=== PATIENT | female | born 1990 | race Caucasian/White ===

== ENCOUNTER 2019-09-11 17:16 | Emergency (ER) | payer OTHER ==
[2019-09-11 17:56] VITALS: RESP 18
[2019-09-11] MEDS ORDERED: SODIUM CHLORIDE 0.9% 1,000 ML IV ONE (18:30)
--- NOTE | 2019-09-11 18:39 | ED ---
General Adult HPI - General Chief complaint: Urogenital Stated complaint: Vaginal bleeding-15wks pg Time Seen by Provider: 09/11/19 17:59 Source: patient Mode of arrival: ambulatory Limitations: no limitations - History of Present Illness Initial comments: 29-year-old female patient presents to the emergency department today for evaluation of vaginal bleeding and . Patient states she is 15 weeks , A1 with one miscarriage, one living child, and one still . Patient states she had 3 hours of spotting yesterday. Patient denies any passage of clots. She did not have to are patent. States she only saw blood when she wiped. Patient states she has been feeling the baby move for the last 3-4 days and has not felt the baby move at all today. She is having some left lower quadrant cramping and pain. She denies any back pain. Denies any hematuria, dysuria, urinary frequency, urinary urgency. She is seeing Dr. Tomeka Mckeon for her HIM SPECIALIST. Patient denies any recent rash, fever, chills, shortness breath, chest pain, nausea, vomiting, diarrhea, constipation, numbness, tingling, dizziness, weakness, headache, visual changes, or any other complaints. - Related Data Previous Rx's Medication Instructions Recorded Cephalexin [Keflex] 500 mg PO BID #14 cap 09/11/19 Allergies Allergy/AdvReac Type Severity Reaction Status Date / Time amoxicillin Allergy Rash/Hives Verified 09/11/19 17:56 codeine Allergy Itching Verified 09/11/19 17:56 Review of Systems ROS Statement: Those systems with pertinent positive or pertinent negative responses have been documented in the HPI. ROS Other: All systems not noted in ROS Statement are negative. Past Medical History Additional Past Medical History / Comment(s): ovarian cyst History of Any Multi-Drug Resistant Organisms: None Reported Past Surgical History: Adenoidectomy, Cholecystectomy, Tonsillectomy Past Psychological History: No Psychological Hx Reported Smoking Status: Current every day smoker Past Alcohol Use History: None Reported Past Drug Use History: None Reported, Marijuana General Exam Limitations: no limitations General appearance: alert, in no apparent distress, other (This is a well- developed, well-nourished, nontoxic-appearing adult female patient in no acute distress. Vital signs upon presentation are temperature 98.3F, pulse 81, respirations 18, blood pressure 115/69, pulse ox 98% on room air.) Eye exam: Present: normal appearance, PERRL, EOMI. Absent: scleral icterus, conjunctival injection, periorbital swelling ENT exam: Present: normal exam, normal oropharynx, mucous membranes moist Respiratory exam: Present: normal lung sounds bilaterally. Absent: respiratory distress, wheezes, rales, rhonchi, stridor Cardiovascular Exam: Present: regular rate, normal rhythm, normal heart sounds. Absent: systolic murmur, diastolic murmur, rubs, gallop, clicks GI/Abdominal exam: Present: soft, tenderness (Suprapubic and left lower quadrant tenderness), normal bowel sounds. Absent: distended, guarding, rebound, rigid Neurological exam: Present: alert, oriented X3, CN II-XII intact Psychiatric exam: Present: normal affect, normal mood Skin exam: Present: warm, dry, intact, normal color. Absent: rash Course Vital Signs 09/11/19 09/11/19 17:53 20:27 Temperature 98.3 F 97.7 F Pulse Rate 81 71 Respiratory 18 18 Rate Blood Pressure 115/69 129/87 O2 Sat by Pulse 98 98 Oximetry Medical Decision Making - Medical Decision Making 29-year-old female patient presents to the emergency department today for evaluation of vaginal bleeding and . She had 3 hours of bleeding yesterday. She reports no bleeding today. She is having some left pelvic discomfort. Labs reviewed and are unremarkable. She is A+ on her blood type. Ultrasound was obtained and showed a viable intrauterine with a gestat ional age of 15 weeks 3 days, heart rate was 149. Patient did receive IV fluids. There was some bacteria in her urine. We'll treat with Keflex. She is instructed to follow-up with HIM SPECIALIST for recheck in 1-2 days. She is instructed to maintain pelvic rest until cleared by her HIM SPECIALIST. Return parameters were discussed in detail. She verbalizes understanding and agrees this plan. - Lab Data Result diagrams: 09/11/19 18:40 09/11/19 18:40 Lab Results 09/11/19 09/11/19 09/11/19 Range/Units 18:40 18:40 18:40 WBC 8.6 (3.8-10.6) k/uL RBC 3.96 (3.80-5.40) m/uL Hgb 13.2 (11.4-16.0) gm/dL Hct 38.5 (34.0-46.0) % MCV 97.2 (80.0-100.0) fL MCH 33.4 (25.0-35.0) pg MCHC 34.3 (31.0-37.0) g/dL RDW 13.0 (11.5-15.5) % Plt Count 251 (150-450) k/uL Neutrophils % 65 % Lymphocytes % 22 % Monocytes % 5 % Eosinophils % 5 % Basophils % 1 % Neutrophils # 5.6 (1.3-7.7) k/uL Lymphocytes # 1.9 (1.0-4.8) k/uL Monocytes # 0.5 (0-1.0) k/uL Eosinophils # 0.5 (0-0.7) k/uL Basophils # 0.1 (0-0.2) k/uL Sodium 137 (137-145) mmol/L Potassium 3.9 (3.5-5.1) mmol/L Chloride 107 (98-107) mmol/L Carbon Dioxide 24 (22-30) mmol/L Anion Gap 6 mmol/L BUN 9 (7-17) mg/dL Creatinine 0.65 (0.52-1.04) mg/dL Est GFR (CKD-EPI)AfAm >90 (>60 ml/min/1.73 sqM) Est GFR (CKD-EPI)NonAf >90 (>60 ml/min/1.73 sqM) Glucose 76 (74-99) mg/dL Calcium 8.9 (8.4-10.2) mg/dL Total Bilirubin 0.2 (0.2-1.3) mg/dL AST 29 (14-36) U/L ALT 38 (9-52) U/L Alkaline Phosphatase 77 (38-126) U/L Total Protein 6.4 (6.3-8.2) g/dL Albumin 3.5 (3.5-5.0) g/dL Urine Color Urine Appearance (Clear) Urine pH (5.0-8.0) Ur Specific [place] (1.001-1.035) Urine Protein (Negative) Urine Glucose (UA) (Negative) Urine Ketones (Negative) Urine Blood (Negative) Urine Nitrite (Negative) Urine Bilirubin (Negative) Urine Urobilinogen (<2.0) mg/dL Ur Leukocyte Esterase (Negative) Urine RBC (0-5) /hpf Urine WBC (0-5) /hpf Ur Squamous Epith Cells (0-4) /hpf Urine Bacteria (None) /hpf Urine Mucus (None) /hpf Blood Type A Positive Blood Type Recheck No Previous Record Bld Type Recheck Status [facility] ONLY 09/11/19 Range/Units 18:40 WBC (3.8-10.6) k/uL RBC (3.80-5.40) m/uL Hgb (11.4-16.0) gm/dL Hct (34.0-46.0) % MCV (80.0-100.0) fL MCH (25.0-35.0) pg MCHC (31.0-37.0) g/dL RDW (11.5-15.5) % Plt Count (150-450) k/uL Neutrophils % % Lymphocytes % % Monocytes % % Eosinophils % % Basophils % % Neutrophils # (1.3-7.7) k/uL Lymphocytes # (1.0-4.8) k/uL Monocytes # (0-1.0) k/uL Eosinophils # (0-0.7) k/uL Basophils # (0-0.2) k/uL Sodium (137-145) mmol/L Potassium (3.5-5.1) mmol/L Chloride (98-107) mmol/L Carbon Dioxide (22-30) mmol/L Anion Gap mmol/L BUN (7-17) mg/dL Creatinine (0.52-1.04) mg/dL Est GFR (CKD-EPI)AfAm (>60 ml/min/1.73 sqM) Est GFR (CKD-EPI)NonAf (>60 ml/min/1.73 sqM) Glucose (74-99) mg/dL Calcium (8.4-10.2) mg/dL Total Bilirubin (0.2-1.3) mg/dL AST (14-36) U/L ALT (9-52) U/L Alkaline Phosphatase (38-126) U/L Total Protein (6.3-8.2) g/dL Albumin (3.5-5.0) g/dL Urine Color Yellow Urine Appearance Cloudy H (Clear) Urine pH 6.5 (5.0-8.0) Ur Specific [place] 1.017 (1.001-1.035) Urine Protein Negative (Negative) Urine Glucose (UA) Negative (Negative) Urine Ketones Negative (Negative) Urine Blood Negative (Negative) Urine Nitrite Negative (Negative) Urine Bilirubin Negative (Negative) Urine Urobilinogen 2.0 (<2.0) mg/dL Ur Leukocyte Esterase Small H (Negative) Urine RBC 1 (0-5) /hpf Urine WBC 4 (0-5) /hpf Ur Squamous Epith Cells 5 H (0-4) /hpf Urine Bacteria Rare H (None) /hpf Urine Mucus Rare H (None) /hpf Blood Type Blood Type Recheck Bld Type Recheck Status - Radiology Data Radiology results: report reviewed Ultrasound of the fetus was obtained. Report was reviewed in its entirety. Impression by Dr. Beavers shows limited survey. Single viable intrauterine corresponding to an ultrasound age of 15 weeks 3 days with an estimated delivery date of 03/01/2020 Disposition Clinical Impression: Vaginal bleeding during , Abdominal pain affecting , Bacteriu nicolle during Disposition: HOME SELF-CARE Condition: Good Instructions (If sedation given, give patient instructions): Abdominal Pain in (ED) Additional Instructions: Increase fluids. Maintain pelvic rest until cleared by HIM SPECIALIST. Follow up with your HIM SPECIALIST for recheck as soon as possible. Return to the emergency department immediately for any new, worsening, or concerning symptoms. Prescriptions: Cephalexin [Keflex] 500 mg PO BID #14 cap Is patient prescribed a controlled substance at d/c from ED?: No Referrals: None,Stated [Primary Care Provider] - 1-2 days Time of Disposition: 20:17
[2019-09-11 19:08] LABS: Basophils # (A) 0.1 k/uL (0-0.2); Basophils % (A) 1 %; Eosinophils # (A) 0.5 k/uL (0-0.7); Eosinophils % (A) 5 %; HCT 38.5 % (34.0-46.0); HGB 13.2 gm/dL (11.4-16.0); Lymphocytes # (A) 1.9 k/uL (1.0-4.8); Lymphocytes % (A) 22 %; MCH 33.4 pg (25.0-35.0); MCHC 34.3 g/dL (31.0-37.0); MCV 97.2 fL (80.0-100.0); Mean Platelet Volume 5.9; Monocytes # (A) 0.5 k/uL (0-1.0); Monocytes % (A) 5 %; Neutrophils # (A) 5.6 k/uL (1.3-7.7); Neutrophils % (A) 65 %; Platelet Count 251 k/uL (150-450); RBC 3.96 m/uL (3.80-5.40); WBC 8.6 k/uL (3.8-10.6)
[2019-09-11 19:10] LABS: Appearance,Urine Cloudy (Clear); Bacteria,Urine Rare /hpf; Bilirubin,Urine Negative (Negative); Blood,Urine Negative (Negative); Color,Urine Yellow; Glucose,Urine (UA) Negative (Negative); Ketones,Urine Negative (Negative); Leukocyte Esterase,Urine Small (Negative); Mucus,Urine Rare /hpf; Nitrite,Urine Negative (Negative); PH, Urine 6.5 (5.0-8.0); Protein,Urine Negative (Negative); RBC,Urine 1 /hpf (0-5); Specific Gravity,Urine 1.017 (1.001-1.035); Squamous Epithelial Cell,Urine 5 /hpf (0-4); WBC,Urine 4 /hpf (0-5)
[2019-09-11 19:15] LABS: ALT 38 U/L (9-52); AST 29 U/L (14-36); African American GFR (CKD) >90 (>60 ml/min/1.73 sqM); Albumin 3.5 g/dL (3.5-5.0); Alkaline Phosphatase 77 U/L (38-126); Anion Gap 6 mmol/L; Blood Urea Nitrogen 9 mg/dL (7-17); Calcium 8.9 mg/dL (8.4-10.2); Carbon Dioxide 24 mmol/L (22-30); Chloride 107 mmol/L (98-107); Glucose 76 mg/dL (74-99); Non-African American GFR(CKD) >90 (>60 ml/min/1.73 sqM); Potassium 3.9 mmol/L (3.5-5.1); Sodium 137 mmol/L (137-145); Total Bilirubin 0.2 mg/dL (0.2-1.3); Total Protein 6.4 g/dL (6.3-8.2)
--- NOTE | 2019-09-11 19:32 | US ---
EXAMINATION TYPE: US OB >= 14 wk fetus DATE OF EXAM: 09/11/2019 COMPARISON: None CLINICAL HISTORY: pain pelvic pain TECHNIQUE: Transabdominal (TA) GESTATIONAL AGE / DATING Physician Established: (15 weeks/2 days) EDC: 03/02/20 Dates by LMP: unknown Dates by First Scan: No previous this is first scan Dates by Current Scan: (15 weeks/3 days) EDC: 03/01/20 SURVEY IUP: Single PLACENTA: Anterior PREVIA: No Previa MIGUEL ANGEL: 10.9 cm Normal CERVICAL LENGTH (transabdominal: norm > 3.0cm): 3.6 cm BIOMETRY PRESENTATION: Breech LIE: Transverse with head maternal RT BPD: 2.8 cm 15 weeks / 0 days HC: 11.2 cm 15 weeks / 3 days AC: 9.7 cm 15 weeks / 6 days FL: 1.7 cm 15 weeks / 0 days ESTIMATED WEIGHT IN GRAMS: 122 grams ESTIMATED WEIGHT IN LBS/OZ: 0 lbs. 4 oz. WEIGHT PERCENTAGE BASED ON ESTABLISHED DATES: 44% HC/AC: 1.16 Normal FL/AC: 17% Normal HEART RATE: 149 bpm RHYTHM: Normal survey is limited. IMPRESSION: Limited survey. Single viable intrauterine corresponding to an ultrasound age of 15 w eeks 3 days with estimated date of delivery March 01, 2020
[2019-09-11 20:28] VITALS: BP 129/87; PULSE 71; TEMP 97.7
== END 2019-09-11 20:28 | disposition home or self-care (01) ==
LOC: EC 17:16
DX: O46.92 Antepartum hemorrhage, unspecified, second trimester (principal); O99.89 Other specified diseases and conditions complicating pregnancy, childbirth and the puerperium; O23.42 Unspecified infection of urinary tract in pregnancy, second trimester; O99.332 Smoking (tobacco) complicating pregnancy, second trimester; F17.200 Nicotine dependence, unspecified, uncomplicated; Z88.0 Allergy status to penicillin; Z88.5 Allergy status to narcotic agent; Z3A.15 15 weeks gestation of pregnancy
CPT/HCPCS: 36415; 76805; 80053; 81001; 85025; 86900; 86901; 96360; 96361; 99284

== ENCOUNTER 2020-01-31 01:27 | Outpatient (CLI) | payer OTHER ==
[2020-01-31 02:27] VITALS: BP 127/66; PULSE 81; RESP 16; TEMP 97.2
--- NOTE | 2020-02-26 07:49 | P.MSEPDOC ---
Presenting Problems - Arrival Data Date of Arrival on Unit: 01/31/20 Time of Arrival on Unit: 01:27 Mode of Transport: Ambulatory - Complaint OB-Reason for Admission/Chief Complaint: Rule Out SROM Comment: Patient presents with possible SROM, states she had a "small leak" at around 2230 this evening for clear fluid, did not have to wear a pad in and states that she has not had a leak since then. Medical History - Information : 4 Para: 1 Term: 0 : 1 Abortions: Spontaneous or Elective: 2 Number of Living Children: 1 - Gestational Age Gestational Age by ERVIN (wks/days): 35 Weeks and 4 Days - History Complications: Smoker Review of Systems - Review of Systems Constitutional: No problems Breast: No problems ENT: No problems Cardiovascular: No problems Respiratory: No problems Gastrointestinal: No problems Genitourinary: No problems Musculoskeletal: No problems Neurological: No problems Skin: No problems Vital Signs - Temperature Temperature: 97.2 F Temperature Source: Temporal Artery Scan - Pulse Pulse Oximetery Pulse Rate: 81 Pulse Assessment Method: Automatic Cuff - Respirations Respiratory Rate: 16 Oxygen Delivery Method: Room Air - Blood Pressure Sitting Blood Pressure: 127/66 Blood Pressure Mean: 86 Blood Pressure Source: Automatic Cuff Medical Screen Scoring (Pre) - Cervical Exam Dilation: 1-3 cm = 1 Membranes: Intact - Uterine Contractions Frequency: > 5 minutes apart = 1 Duration: > 40 seconds = 2 Intensity: N/A - Maternal Vital Signs Maternal Temperature: N/A Maternal Blood Pressure: N/A Signs of Preeclampsia: N/A Maternal Respirations: N/A - Maternal Trauma Maternal Trauma: N/A - Assessment - Baby A Baseline FHR: 140 Heart Rate - NICHD Category: Category I (Normal) = 0 NST: Reactive Position: N/A Station: N/A - Total Score - Baby A Total Score - Baby A: 4 - Total Score - Baby B Total Score - Baby B: 4 - Total Score - Baby C Total Score - Baby C: 4 - Level of Risk - Baby A Level of Risk - Baby A: Low (0-5) - Level of Risk - Baby B Level of Risk - Baby B: Low (0-5) - Level of Risk - Baby C Level of Risk - Baby C: Low (0-5) Physician Notification (Pre) - Physician Notified Physician Notified Date: 01/31/20 Physician Notified Time: 02:05 New Order Received: Yes - Notification Comment Comment: Orders given to discharge patient home with instructions, may give patient the option to stay and be rechecked if she wishes, otherwise discharge home with instructions. Disposition - Disposition OB Disposition: Discharge to home, Written follow up instructions reviewed Discharge Date: 01/31/20 Discharge Time: 02:10 I agree with the RN Medical Screening Exam: Yes Risk & Benefit of care provided described in d/c instruction: Yes Diagnosis: False labor
== END 2020-01-31 02:10 | disposition home or self-care (01) ==
LOC: FBPOP 01:27
PROVIDERS: ATTEND Obstetrics & Gynecology
DX: O47.03 False labor before 37 completed weeks of gestation, third trimester (principal); O99.333 Smoking (tobacco) complicating pregnancy, third trimester; F17.200 Nicotine dependence, unspecified, uncomplicated; Z3A.35 35 weeks gestation of pregnancy
CPT/HCPCS: 59025; G0463; 99213

== ENCOUNTER 2020-02-18 19:38 | Inpatient (IN) | payer OTHER ==
[2020-02-18] MEDS ORDERED: CARBOPROST TROMETHAMINE 250 MCG/ML 1 ML AMP IM PRN (20:20)
[2020-02-18] MEDS ORDERED: OXYTOCIN 10 UNIT/ML 1 ML VIAL IM PRN (20:20)
[2020-02-18] MEDS ORDERED: LIDOCAINE 0.5% (PF) 5 MG/ML (50 ML SDV) SQ PRN (20:20)
[2020-02-18] MEDS ORDERED: TERBUTALINE 1 MG/ML VIAL SQ PRN (20:20)
[2020-02-18] MEDS ORDERED: METHYLERGONOVINE 0.2 MG/ML 1 ML AMP IM PRN (20:20)
[2020-02-18] MEDS ORDERED: LACTATED RINGERS 1,000 ML IV SCH (20:30)
--- NOTE | 2020-02-18 21:16 | P.HPOB ---
History of Present Illness H&P Date: 02/18/20 Chief Complaint: My water broke at This is a 29-year-old female 3 para 1011 EDC 03/02/2020 at 38 and one sevenths weeks' gestation. Patient presented with spontaneous amniorrhexis, clear fluid, which occurred at home at 7:30 PM.. Strong regular uterine contractions to follow. Fetus is been active throughout the . Past medical history is significant for mild chronic hypertension and asthma. Past surgical history cholecystectomy, tonsillectomy and adenoidectomy. Current medications vitamins daily, Ventolin inhaler as needed. ALLERGIES include amoxicillin, codeine, and erythromycin, reactions to these medications unknown. history is significant for blood type A+, group B strep cultures negative. Rubella status immune. VDRL testing, urine culture, hepatitis B surface antigen, HIV testing, gonorrhea and chlamydia cultures all negative. One-hour Glucola 133. On exam patient is 5 foot 3-1/2 inches, 294 pounds, vital signs are stable and she is afebrile. The general physical examination is significant for poor hygiene, poor dentition, and morbid obesity. Cervix on admission is 6 cm dilated, ruptured membranes, clear fluid, positive amnio-sure. heart rate is consistent with reactive NST. Impression: 39 and one sevenths weeks intrauterine , spontaneous amniorrhexis, active labor. Plan: Close maternal and surveillance. Anticipate normal spontaneous vaginal delivery. Review of Systems Constitutional: Reports as per HPI Past Medical History Past Medical History: Asthma Additional Past Medical History / Comment(s): ovarian cyst, morbid obesity History of Any Multi-Drug Resistant Organisms: None Reported, MRSA Date of last positivie culture/infection: 2008 MDRO Source:: Bilateral legs Past Surgical History: Adenoidectomy, Cholecystectomy, Tonsillectomy Smoking Status: Current every day smoker Medications and Allergies Home Medications Medication Instructions Recorded Confirmed Type Pnv No.95/Ferrous Fum/Folic AC 1 each PO DAILY 01/31/20 02/18/20 History [ Multivitamin Tablet] Allergies Allergy/AdvReac Type Severity Reaction Status Date / Time amoxicillin Allergy Rash/Hives Verified 01/31/20 01:35 azithromycin Allergy Unknown Verified 02/18/20 19:57 codeine Allergy Itching Verified 01/31/20 01:35 Penicillins Allergy Rash/Hives Verified 02/18/20 19:57 Exam Intake and Output 02/18/20 02/18/20 02/18/20 06:59 14:59 22:59 Other: Weight 128.82 kg See dictation under HPI please Assessment and Plan Assessment: 38 and one sevenths weeks intrauterine , active labor. Poor maternal hygiene. Morbid obesity. Plan: Anticipate normal spontaneous vaginal delivery. Time with Patient: Less than 30
[2020-02-18] MEDS ORDERED: ACETAMINOPHEN TAB 325 MG TAB PO PRN (21:19)
[2020-02-18] MEDS ORDERED: diphenhydrAMINE 50 MG CAP PO PRN (21:19)
[2020-02-18] MEDS ORDERED: BENZOCAINE/MENTHOL SPRAY 1 GM/SPRAY AEROSOL TOPICAL PRN (21:19)
[2020-02-18] MEDS ORDERED: diphenhydrAMINE 25 MG CAP PO PRN (21:19)
[2020-02-18] MEDS ORDERED: diphenhydrAMINE 50 MG/ML 1 ML VIAL IVP PRN ×2 (21:19)
[2020-02-18] MEDS ORDERED: WITCH HAZEL 1 EACH MED..PAD TOPICAL PRN (21:19)
[2020-02-18] MEDS ORDERED: IBUPROFEN 600 MG TAB PO PRN (21:19)
[2020-02-18] MEDS ORDERED: ZOLPIDEM 5 MG TAB PO PRN (21:19)
[2020-02-18] MEDS ORDERED: LANOLIN CREAM 5 GM TUBE TOPICAL PRN (21:19)
[2020-02-18] MEDS ORDERED: SIMETHICONE 80 MG CHEWABLE PO PRN (21:19)
[2020-02-18] MEDS ORDERED: HYDROCORTISONE 2.5% RECTAL CREAM 30 GM TUBE RECTAL PRN (21:19)
--- NOTE | 2020-02-18 21:19 | P.PROBDLV ---
Vaginal Delivery Note - . Vaginal Delivery Note: This is a 29-year-old white female 3 para 1011 EDC 03/02/2020 at 38 and one sevenths weeks' gestation. Patient presented with spontaneous amniorrhexis which occurred at home, clear fluid. Strong regular uterine contractions to follow. History is significant for morbid obesity, history of substance abuse, asthma, and poor maternal hygiene. Please see dictated history and physical for details. On admission she was 6 cm dilated, vertex presentation, 50% effaced, -2 station. Patient was admitted, analgesic options reviewed. However, very quickly patient became completely dilated. There was no time for epidural analgesia to be administered. Perineal body was prepped and draped in usual sterile fashion. Very rapidly the 's head delivered occiput anterior and restituted accordingly. There was no nuchal cord noted. The shoulders were delivered very quickly and easily, no shoulder dystocia. The umbilical cord was doubly clamped and ligated, baby was handed to waiting nurses for evaluation where scores of 8 and 9 at one and 5 minutes respectively were given. Delivery of baby 2053 hours. The uterus is then massaged, spontaneously the placenta delivers intact with trivascular cord at 205 hours. This time the perineal body is thoroughly inspected. Inspection of the cervix, vagina, perineum, periurethral, and perirectal areas reveals no lacerations or defects. weighs 2990 g or 6 lbs. 9 oz. All sponge needle and instrument counts are correct at the end of the procedure. Patient and her significant other are allowed to begin the bonding experience in the LDR. director of tax services consult will be obtained.
[2020-02-18] MEDS ORDERED: OXYTOCIN 20 UNITS/1000 ML NS 1,000 ML IV SCH (21:30)
[2020-02-18 21:35] VITALS: RESP 16
[2020-02-18 21:39] LABS: Basophils % (A) 0 %; Eosinophils # (A) 0.4 k/uL (0-0.7); Eosinophils % (A) 3 %; HGB 13.8 gm/dL (11.4-16.0); Lymphocytes # (A) 2.6 k/uL (1.0-4.8); Lymphocytes % (A) 18 %; MCH 33.2 pg (25.0-35.0); MCHC 32.8 g/dL (31.0-37.0); MCV 101.2 fL (80.0-100.0); Macrocytosis Slight; Mean Platelet Volume 8.4; Monocytes # (A) 0.8 k/uL (0-1.0); Monocytes % (A) 6 %; Neutrophils # (A) 10.3 k/uL (1.3-7.7); Neutrophils % (A) 72 %; Platelet Count 304 k/uL (150-450); RBC 4.15 m/uL (3.80-5.40); RDW 13.9 % (11.5-15.5); WBC 14.4 k/uL (3.8-10.6)
[2020-02-19 01:48] LABS: Amphetamine Screen,Urine Not Detected (NotDetected); Barbiturate Screen,Urine Not Detected (NotDetected); Benzodiazepines Screen,Urine Not Detected (NotDetected); Cocaine Screen,Urine Not Detected (NotDetected); Methadone Screen, Urine Not Detected (NotDetected); Opiate Screen,Urine Not Detected (NotDetected); Oxycodone Screen, Urine Not Detected (NotDetected); Phencyclidine Screen,Urine Not Detected (NotDetected); Tricyclic Antidepressant,Urine Not Detected (NotDetected); Urn Cannabinoid Scrn Not Detected (NotDetected)
[2020-02-19] MEDS: SENNOSIDES-DOCUSATE SODIUM 1 EACH TAB PO SCH ×2 (08:23→19:42)
--- NOTE | 2020-02-19 11:09 | P.DS ---
Providers Date of admission: 02/18/20 20:05 Expected date of discharge: 02/19/20 Attending physician: Tomeka Mckeon Primary care physician: Stated None Hospital Course: This is a 29-year-old female 3 para 1011 EDC 03/02/2020 at 38 and one sevenths weeks' gestation. Patient presented to the hospital active spontaneous labor. remarkable for blood type A+, rubella status immune, group B strep cultures negative. Please see dictated history and physical for details. Patient was admitted, spontaneous amniorrhexis revealed clear fluid. heart rate was consistent with reactive NST and reassuring. Patient quickly became completely dilated and very quickly delivered a liveborn female , scores of 8 and 9 at one and 5 minutes respectively. weighed 6 lbs. 9 oz. or 2990 g. There was a trivascular cord, no lacerations, an estimated blood loss of 250 mL's. Please see dictated delivery note for details. This morning the patient is doing well. She is voiding, ambulating and passing flatus without difficulty. Vital signs are stable and she is afebrile. Fundus is firm and in the midline, symmetric and 18 week size. Extremities are negative for edema. Page is doing well. I have given her prescription for a double electric breast pump to be used as needed. She will use [id number] ibuprofen products as needed for pain. She will call with any fevers shakes or chills, foul smelling or copious lochia, with the passage of large blood clots, with any pain not alleviated by [id number] products, or indeed with any concerns. cargo and ramp services manager consult has been reque ab. We have briefly reviewed options for contraception and we will discuss this further in the office at the 6 week visit. Patient Condition at Discharge: Good Plan - Discharge Summary Discharge Rx Participant: No New Discharge Prescriptions: No Action Pnv No.95/Ferrous Fum/Folic AC [ Multivitamin Tablet] 1 each PO DAILY Discharge Medication List Pnv No.95/Ferrous Fum/Folic AC [ Multivitamin Tablet] 1 each PO DAILY 01/31/20 [History] Follow up Appointment(s)/Referral(s): Tomeka Mckeon MD [STAFF PHYSICIAN] - 6 Weeks Discharge Disposition: HOME SELF-CARE
[2020-02-19 20:04] VITALS: BP 129/73; PULSE 73; TEMP 97.1
== END 2020-02-19 21:30 | disposition home or self-care (01) | DRG 807 ==
LOC: FBPOP 19:38 → 4FBP 20:05
PROVIDERS: ADMIT Obstetrics & Gynecology; ATTEND Obstetrics & Gynecology
PROC: 10E0XZZ Delivery of Products of Conception, External Approach (ICD-10-PCS; principal; 2020-02-18)
DX: O99.52 Diseases of the respiratory system complicating childbirth (principal); Z37.0 Single live birth; J45.909 Unspecified asthma, uncomplicated; F17.200 Nicotine dependence, unspecified, uncomplicated; E66.01 Morbid (severe) obesity due to excess calories; Z3A.38 38 weeks gestation of pregnancy; O16.4 Unspecified maternal hypertension, complicating childbirth; O99.214 Obesity complicating childbirth; O99.334 Smoking (tobacco) complicating childbirth; Z88.5 Allergy status to narcotic agent; Z90.49 Acquired absence of other specified parts of digestive tract; Z90.89 Acquired absence of other organs; Z88.0 Allergy status to penicillin
CPT/HCPCS: 59025; 80306; 84112; 85025; 86850; 86900; 86901; 99213

== ENCOUNTER 2021-03-12 05:56 | Inpatient (IN) | payer OTHER ==
[2021-03-12] MEDS ORDERED: LIDOCAINE 0.5% (PF) 5 MG/ML (50 ML SDV) SQ PRN (06:12)
[2021-03-12] MEDS ORDERED: CARBOPROST TROMETHAMINE 250 MCG/ML 1 ML AMP IM PRN (06:12)
[2021-03-12] MEDS ORDERED: OXYTOCIN 10 UNIT/ML 1 ML VIAL IM PRN (06:12)
[2021-03-12] MEDS ORDERED: METHYLERGONOVINE 0.2 MG/ML 1 ML AMP IM PRN (06:12)
[2021-03-12] MEDS ORDERED: TERBUTALINE 1 MG/ML VIAL SQ PRN (06:12)
[2021-03-12] MEDS ORDERED: OXYTOCIN 30 UNITS/500 ML NS 30 UNIT in SALINE 1 500ML.BAG IV SCH (06:15)
[2021-03-12] MEDS ORDERED: LACTATED RINGERS 1,000 ML IV SCH (06:15)
[2021-03-12 06:30] LABS: Glucose,Whole Blood 118 mg/dL (75-99)
[2021-03-12] MEDS: LACTATED RINGERS 1,000 ML IV SCH ×2 (06:41→10:56)
[2021-03-12] MEDS ORDERED: AZITHROMYCIN 500 MG in SODIUM CHLORIDE 0.9% 250 ML IVPB STA (06:46)
[2021-03-12 07:21] LABS: Basophils % (A) 0 %; Eosinophils # (A) 0.6 k/uL (0-0.7); Eosinophils % (A) 4 %; HCT 34.7 % (34.0-46.0); HGB 12.2 gm/dL (11.4-16.0); Lymphocytes % (A) 14 %; MCHC 35.1 g/dL (31.0-37.0); MCV 96.8 fL (80.0-100.0); Mean Platelet Volume 7.2; Monocytes # (A) 0.6 k/uL (0-1.0); Monocytes % (A) 4 %; Neutrophils % (A) 77 %; Platelet Count 228 k/uL (150-450); RBC 3.58 m/uL (3.80-5.40); RDW 13.7 % (11.5-15.5); WBC 14.3 k/uL (3.8-10.6)
--- NOTE | 2021-03-12 07:48 | P.HPOB ---
History of Present Illness H&P Date: 03/12/21 this is a 30-year-old female 4 para 2011 EDC 04/02/2021 at 37 weeks gestation. Patient is being induced today per recommendation of maternal medicine for severe IUGR. She has been co-managed with maternal- medicine at [facility]. Fetus is been active throughout the . This morning she admits to mild pelvic cramping. She denies fluid leakage or vaginal bleeding. Past medical history is significant for morbid obesity, and asthma. Past surgical history tonsillectomy and adenoidectomy, cholecystectomy. Current medications baby aspirin daily, vitamin daily, Ventolin inhaler every 6 hours as needed. ALLERGIES include erythromycin to which reports hematuria, clindamycin to which she reports hives, amoxicillin to which reports a rash, codeine to which she reports itching. history is significant for blood type A+, group B strep cultures positive. Rubella status nonimmune. Glucola testing significant for gestational diabetes. VDRL testing, urine culture, hepatitis B surface antigen, HIV testing, gonorrhea and chlamydia cultures negative. Urine drug screen negative. Social history is significant for opioid and meth addiction. Patient has been clean since August 2017. She is single, father of the baby is involved. She continues to smoke tobacco one quarter pack per day. On exam patient is 5 foot 3 inches, 330 pounds, blood pressure 146/79 on admission, pulse 119. Temperature 98.3. O2 saturation 99%. Chest is clear in all lima. Extremities reveal no edema. Cervix is 3-4 cm dilated, 60% effaced, soft, anterior, -2 station. Artificial amniorrhexis reveals light meconium-stained fluid. Internal scalp lead is placed. heart rate is in the 140s with frequent accelerations consistent with reactive NST. Blood sugar on admission 119. Impression: 37 week intrauterine , severe IUGR, recommendation of maternal medicine for induction today. Gestational diabetes, morbid obesity, history of methamphetamine and opioid addiction, positive group B strep cultures. Plan: We will use 3 g every 8 hours per pharmacy recommendation for history of positive group B strep cultures. Close maternal and surveillance. Oxytocin per hospital protocol. Analgesic options reviewed. Anticipate normal spontaneous vaginal delivery. Profiling Machine Operator aware of our clinical scenario. ll questions Answered. Review of Systems Constitutional: Reports as per HPI Past Medical History Past Medical History: Asthma Additional Past Medical History / Comment(s): ovarian cyst, morbid obesity, gestational diabetes, pre-eclampsia History of Any Multi-Drug Resistant Organisms: None Reported, MRSA Date of last positivie culture/infection: 2008 MDRO Source:: Bilateral legs Past Surgical History: Adenoidectomy, Cholecystectomy, Tonsillectomy Past Anesthesia/Blood Transfusion Reactions: No Reported Reaction Past Psychological History: No Psychological Hx Reported Smoking Status: Current every day smoker Past Alcohol Use History: None Reported Past Drug Use History: Methamphetamine Additional Drug Use History / Comment(s): pt reported hx of drug use. 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 - Past Family History Mother Family Medical History: No Reported History Medications and Allergies Home Medications Medication Instructions Recorded Confirmed Type Pnv No.95/Ferrous Fum/Folic AC 1 each PO DAILY 01/31/20 03/12/21 History [ Multivitamin Tablet] Aspirin [Adult Low Dose Aspirin EC] 81 mg PO DAILY 03/01/21 03/12/21 History Allergies Allergy/AdvReac Type Severity Reaction Status Date / Time amoxicillin Allergy Rash/Hives Verified 03/01/21 10:56 azithromycin Allergy Unknown Verified 03/01/21 10:56 clindamycin Allergy Anaphylaxis Verified 03/12/21 06:11 coconut Allergy Unknown Verified 03/01/21 12:11 codeine Allergy Itching Verified 03/01/21 10:56 Penicillins Allergy Rash/Hives Verified 03/01/21 10:56 Exam Vital Signs Temp Pulse Resp BP Pulse Ox 03/12/21 06:18 98.3 F 116 H 16 146/79 99 Intake and Output 03/11/21 03/12/21 03/12/21 22:59 06:59 14:59 Other: Weight 149.685 kg see dictation under HPI please Results Result Diagrams: 03/12/21 07:08 Abnormal Lab Results - Last 24 Hours (Table) 03/12/21 03/12/21 Range/Units 06:29 07:08 WBC 14.3 H (3.8-10.6) k/uL RBC 3.58 L (3.80-5.40) m/uL Neutrophils # 11.0 H (1.3-7.7) k/uL POC Glucose (mg/dL) 118 H (75-99) mg/dL Assessment and Plan Assessment: 37 week intrauterine , morbid maternal obesity, positive group B strep cultures, asthma, severe IUGR, tobacco smoking, recovered opioid and methamphetamine addict. Light meconium-stained fluid. Plan: 3 g every 8 hours IV piggyback, close maternal and surveillance, analgesic options reviewed, anticipate normal spontaneous vaginal delivery. Time with Patient: Less than 30
[2021-03-12] MEDS ORDERED: ceFAZolin 3 GM in SODIUM CHLORIDE 0.9% 100 ML IVPB SCH (08:00)
[2021-03-12] MEDS: BUTORPHANOL 1 MG/ML 1 ML VIAL IV PRN ×2 (08:30→11:26)
[2021-03-12 09:04] LABS: Amphetamine Screen,Urine Not Detected (NotDetected); Barbiturate Screen,Urine Not Detected (NotDetected); Benzodiazepines Screen,Urine Not Detected (NotDetected); Cocaine Screen,Urine Not Detected (NotDetected); Methadone Screen, Urine Not Detected (NotDetected); Opiate Screen,Urine Not Detected (NotDetected); Oxycodone Screen, Urine Not Detected (NotDetected); Phencyclidine Screen,Urine Not Detected (NotDetected); Tricyclic Antidepressant,Urine Not Detected (NotDetected); Urn Cannabinoid Scrn Not Detected (NotDetected)
[2021-03-12] MEDS ORDERED: SODIUM CHLORIDE 0.9% 100 ML BAG ONE (10:36)
[2021-03-12] MEDS ORDERED: fentaNYL (PF) 50 MCG/ML 5 ML AMP ONE (10:36)
[2021-03-12] MEDS ORDERED: ROPIVACAINE 5MG/ML 20ML VIAL ONE (10:36)
[2021-03-12] MEDS ORDERED: HYDROCORTISONE 2.5% RECTAL CREAM 30 GM TUBE RECTAL PRN (12:10)
[2021-03-12] MEDS ORDERED: BENZOCAINE/MENTHOL SPRAY 1 GM/SPRAY AEROSOL TOPICAL PRN (12:10)
[2021-03-12] MEDS ORDERED: LANOLIN CREAM 5 GM TUBE TOPICAL PRN (12:10)
[2021-03-12] MEDS ORDERED: diphenhydrAMINE 50 MG/ML 1 ML VIAL IVP PRN ×2 (12:10)
[2021-03-12] MEDS ORDERED: diphenhydrAMINE 25 MG CAP PO PRN (12:10)
[2021-03-12] MEDS ORDERED: diphenhydrAMINE ELIXIR 25 MG/10 ML CUP PO PRN (12:10)
[2021-03-12] MEDS ORDERED: diphenhydrAMINE 50 MG CAP PO PRN (12:10)
[2021-03-12] MEDS ORDERED: SIMETHICONE 80 MG CHEWABLE PO PRN (12:10)
[2021-03-12] MEDS ORDERED: ACETAMINOPHEN TAB 325 MG TAB PO PRN (12:10)
--- NOTE | 2021-03-12 12:10 | P.PROBDLV ---
Vaginal Delivery Note - . Vaginal Delivery Note: This is a 30-year-old morbidly obese white female 4 para 2012 EDC 04/02/2021 at 37 weeks gestation. Patient presented today for induction by recommendation of maternal medicine, for severe intrauterine growth restriction. She has been followed closely with biophysical profiles, Doppler studies of the umbilical cord, and twice weekly nonstress testing. is also remarkable for smoking, gestational diabetes diet controlled, positive group B strep cultures and a history of opioid and methamphetamine use. Fasting blood sugar on admission 119. Please see my dictated history and physical for details. Artificial amniorrhexis revealed thin meconium-stained fluid. 3 g was given IV piggyback for history of positive group B strep cultures. Epidural was placed per her request. Patient felt perineal pressure, was 8 cm dilated and I was called to attend the bedside. Within minutes, patient spontaneously delivered a liveborn female infant in the bedside with nursing in attendance. Infant weighed 5 pounds 4.7 ounces, or 2400 g. Within one moment I was at the bedside. scores were 8 and 9 at one and 5 minutes respectively. At this time the perineal body is redraped. The uterus is massaged, and the placenta delivers spontaneously, intact with trivascular cord at 1157 hours. It is sent to pathology for evaluation for her history. Careful inspection of the cervix, vagina, perineum, periurethral, and perirectal areas revealed no lacerations or defects. Total estimated blood loss 200 mL's. All sponge needle and enhancement counts are correct. Placenta is being sent to pathology for evaluation. Patient and her family are allowed to begin the bonding experience in the LDR.
[2021-03-12] MEDS: IBUPROFEN 600 MG TAB PO SCH ×2 (12:28→21:46)
[2021-03-12 16:13] LABS: Hemoglobin A1C 5.5 % (4.0-6.0)
[2021-03-12] MEDS: ZOLPIDEM 5 MG TAB PO PRN (21:45)
[2021-03-12] MEDS: SENNOSIDES-DOCUSATE SODIUM 1 EACH TAB PO SCH (21:46)
[2021-03-13] MEDS: IBUPROFEN 600 MG TAB PO SCH ×4 (05:13→20:41)
--- NOTE | 2021-03-13 07:52 | P.PN ---
Subjective Progress Note Date: 03/13/21 Principal diagnosis: Doing well day #1 Slept well. Minimal lochia rubra. No complaints of pain. Objective - Vital Signs Vital signs: Vital Signs Temp 98.1 F 03/13/21 00:00 Pulse 83 03/13/21 00:00 Resp 18 03/13/21 00:00 BP 109/73 03/13/21 00:00 Pulse Ox 96 03/13/21 00:00 Intake & Output 03/12/21 03/13/21 03/13/21 18:59 06:59 18:59 Intake Total 172.1 Output Total 200 Balance -27.9 Intake: Intake, IV Titration 172.1 Amount Oxytocin 30 Units/500 ml 172.1 Ns 30 unit In Saline 1 500ml.bag @ Per Protocol IV .Q0M RULA Rx#:[id number] Output: Estimated Blood Loss 200 Other: # Voids 1 2 - Constitutional General appearance: Present: morbidly obese - EENT Eyes: Present: PERRLA ENT: Present: hearing grossly normal - Neck Neck: Present: normal ROM - Respiratory Respiratory: bilateral: CTA - Cardiovascular Rhythm: regular - Gastrointestinal General gastrointestinal: Present: normal bowel sounds - Integumentary Integumentary: Present: normal - Neurologic Neurologic: Present: CNII-XII intact - Musculoskeletal Musculoskeletal: Present: gait normal, strength equal bilaterally - Psychiatric Psychiatric: Present: A&O x's 3, appropriate affect, intact judgment & insight - Labs CBC & Chem 7: 03/12/21 07:08 Assessment and Plan Assessment: Doing well day #1 Plan: Continue care. Likely discharge home tomorrow. Time with Patient: Less than 30
[2021-03-13] MEDS: SENNOSIDES-DOCUSATE SODIUM 1 EACH TAB PO SCH ×2 (10:07→20:41)
[2021-03-13] MEDS ORDERED: MEASLES-MUMPS-RUBELLA VACC/PF 12,500 UNIT/0.5 ML VIAL SQ ONE (10:37)
[2021-03-13] MEDS: ZOLPIDEM 5 MG TAB PO PRN (20:41)
[2021-03-14 02:21] VITALS: RESP 16
[2021-03-14] MEDS: IBUPROFEN 600 MG TAB PO SCH ×2 (04:44→10:41)
[2021-03-14 08:18] VITALS: BP 118/76; PULSE 80; TEMP 98
--- NOTE | 2021-03-14 08:26 | P.DS ---
Providers Date of admission: 03/12/21 05:56 Expected date of discharge: 03/14/21 Attending physician: Tomeka Mckeon Primary care physician: Stated None Hospital Course: This is a 30-year-old female 4 para 2011 EDC 04/02/2021 at 37 weeks gestation. Patient presented for induction for history of severe intrauterine growth restriction, gestational diabetes, history of smoking, history of drug use, no managed with maternal- medicine. Please see my dictated history and physical for details. Artificial amniorrhexis revealed clear fluid. Patient went on to deliver vaginally a liveborn female infant with scores of 8 and 9 at one and 5 minutes respectively. Infant weighed 2400 g or 5 pounds 4.7 ounces. The perineal body was clean and dry. Estimated blood loss 200 mL's. Please see dictated delivery note for details. This morning the patient is doing well. She is voiding, and bleeding, passing flatus without difficulty. Vital signs are stable and she is afebrile. Fundus is firm and in the midline, symmetric and 18 week size. Breasts are not engorged. Patient is not breast-feeding. infant is in the nursery. Patient follow-up with me in the office in 6 weeks. I have reminded her no intercourse, tampons or douching. She'll use [id number] Advil or Aleve, or Motrin as needed for pain. She will call with any fevers shakes or chills, foul smelling or copious lochia, with the passage of large blood clots, with any pain not alleviated by [id number] products, or indeed with any concerns. I have reminded her that another is not her best health interest. She states she will be scheduling tubal ligation. Assessment: Doing well day number two Patient Condition at Discharge: Good Plan - Discharge Summary Discharge Rx Participant: No New Discharge Prescriptions: No Action Pnv No.95/Ferrous Fum/Folic AC [ Multivitamin Tablet] 1 each PO DAILY Aspirin [Adult Low Dose Aspirin EC] 81 mg PO DAILY Discharge Medication List Pnv No.95/Ferrous Fum/Folic AC [ Multivitamin Tablet] 1 each PO DAILY [History] Aspirin [Adult Low Dose Aspirin EC] 81 mg PO DAILY 03/01/21 [History] Follow up Appointment(s)/Referral(s): Tomeka Mckeon MD [STAFF PHYSICIAN] - 6 Weeks Discharge Disposition: HOME SELF-CARE
[2021-03-14] MEDS: SENNOSIDES-DOCUSATE SODIUM 1 EACH TAB PO SCH (10:42)
== END 2021-03-14 11:50 | disposition home or self-care (01) | DRG 807 ==
LOC: 4FBP 05:56
PROVIDERS: ADMIT Obstetrics & Gynecology; ATTEND Obstetrics & Gynecology
PROC: 10E0XZZ Delivery of Products of Conception, External Approach (ICD-10-PCS; principal; 2021-03-12)
DX: O36.5930 Maternal care for other known or suspected poor fetal growth, third trimester, not applicable or unspecified (principal); Z37.0 Single live birth; E66.01 Morbid (severe) obesity due to excess calories; F17.210 Nicotine dependence, cigarettes, uncomplicated; J45.909 Unspecified asthma, uncomplicated; O24.429 Gestational diabetes mellitus in childbirth, unspecified control; O77.0 Labor and delivery complicated by meconium in amniotic fluid; O99.214 Obesity complicating childbirth; O99.334 Smoking (tobacco) complicating childbirth; O99.52 Diseases of the respiratory system complicating childbirth; Z3A.37 37 weeks gestation of pregnancy; Z79.82 Long term (current) use of aspirin; Z88.5 Allergy status to narcotic agent
CPT/HCPCS: 80306; 83036; 85025; 86850; 86900; 86901; 88307; 90707

== ENCOUNTER 2024-04-19 17:22 | Observation (INO) | payer OTHER ==
[2024-04-19 18:42] LABS: C Reactive Protein 1.4 mg/dL (<1.0)
--- NOTE | 2024-04-19 19:15 | ED ---
General Adult HPI - General Chief complaint: Recheck/Abnormal Lab/Rx Stated complaint: AMS Time Seen by Provider: 04/19/24 17:40 Source: patient, EMS, RN notes reviewed, old records reviewed Mode of arrival: EMS - History of Present Illness Initial comments: This is a 33-year-old female who presents to the emergency department from [facility]. Patient presented altered and having difficulty ambulating because she felt as though she was falling to 1 side. Patient had a workup there they did not find any cause for her altered mental status or ataxia. Patient currently states she just feels achy in all of her joints and when she does get up she does feel like she is having difficulty walking straight but it is not falling to one side it is falling to either side at times. Patient denies a headache patient denies any numbness or focal weakness. Patient has any recent fever chills or cough or patient has any drug use or alcohol use. Patient denies any chest pain Diffley breathing or shortness of breath. - Related Data Home Medications Medication Instructions Recorded Confirmed Albuterol Sulfate [Ventolin HFA] 2 puff INHALATION RT-QID PRN 04/19/24 04/19/24 Budesonide/Formoterol Fumarate 2 puff INHALATION RT-BID 04/19/24 04/19/24 [Symbicort 80-4.5 Mcg Inhaler] Cholecalciferol (Vitamin D3) 50 mcg PO DAILY 04/19/24 04/19/24 [Vitamin D3 (50 Mcg = 2000 Iu) Chew Tab] DULoxetine HCL [Cymbalta] 60 mg PO BID 04/19/24 04/19/24 Dicyclomine [Bentyl] 20 mg PO QID PRN 04/19/24 04/19/24 EPINEPHrine (Auto Inject) [Epipen] 0.3 mg IM ONCE PRN 04/19/24 04/19/24 Gabapentin [Neurontin] 400 mg PO TID 04/19/24 04/19/24 HYDROcodone/APAP 5-325MG [[place] 1 tab PO Q6H PRN 04/19/24 04/19/24 5-325] Ibuprofen [Motrin] 800 mg PO TID PRN 04/19/24 04/19/24 Lisdexamfetamine Dimesylate 30 mg PO QAM 04/19/24 04/19/24 [Vyvanse] Loratadine [Claritin] 10 mg PO DAILY PRN 04/19/24 04/19/24 Ondansetron Odt [Zofran Odt] 8 mg PO Q12H PRN 04/19/24 04/19/24 buPROPion HCL [Wellbutrin SR] 150 mg PO BID 04/19/24 04/19/24 methocarbamoL [Robaxin-750] 750 mg PO TID PRN 04/19/24 04/19/24 traZODone HCL [Desyrel] 50 mg PO DIRECTED 04/19/24 04/19/24 Allergies Allergy/AdvReac Type Severity Reaction Status Date / Time amoxicillin Allergy Rash/Hives Verified 04/19/24 17:50 azithromycin Allergy Unknown Verified 04/19/24 17:50 bee venom protein (honey bee) Allergy Anaphylaxis Verified 04/19/24 18:08 clindamycin Allergy Anaphylaxis Verified 04/19/24 17:50 coconut Allergy Unknown Verified 04/19/24 17:50 codeine Allergy Itching/hiv Verified 04/19/24 17:50 es Penicillins Allergy Rash/Hives Verified 04/19/24 17:50 Review of Systems ROS Statement: Those systems with pertinent positive or pertinent negative responses have been documented in the HPI. ROS Other: All systems not noted in ROS Statement are negative. Past Medical History Past Medical History: Asthma Additional Past Medical History / Comment(s): ovarian cyst, morbid obesity, gestational diabetes, pre-eclampsia History of Any Multi-Drug Resistant Organisms: MRSA Date of last positivie culture/infection: 2008 MDRO Source:: Bilateral legs Past Surgical History: Adenoidectomy, Cholecystectomy, Tonsillectomy Past Anesthesia/Blood Transfusion Reactions: No Reported Reaction Past Psychological History: No Psychological Hx Reported Smoking Status: Current every day smoker Past Alcohol Use History: None Reported Past Drug Use History: Methamphetamine - Past Family History Mother Family Medical History: No Reported History General Exam - General Exam Comments Initial Comments: GENERAL: Patient is well-developed and well-nourished. Patient is nontoxic and well- hydrated and is in mild distress. ENT: Neck is soft and supple. No significant lymphadenopathy is noted. Oropharynx is clear. Moist mucous membranes. Neck has full range of motion without eliciting any pain. EYES: The sclera were anicteric and conjunctiva were pink and moist. Extraocular movements were intact and pupils were equal round and reactive to light. Eyelids were unremarkable. PULMONARY: Unlabored respirations. Good breath sounds bilaterally. No audible rales rhonchi or wheezing was noted. CARDIOVASCULAR: There is a regular rate and rhythm without any murmurs gallops or rubs. ABDOMEN: Soft and nontender with normal bowel sounds. No palpable organomegaly was noted. There is no palpable pulsatile mass. SKIN: Skin is clear with no lesions or rashes and otherwise unremarkable. NEUROLOGIC: Patient is alert and oriented x3. Cranial nerves II through XII are grossly intact. Motor and sensory are also intact. Normal speech, volume and content. Symmetrical smile. Nose testing is normal bilaterally. Patient was able to ambulate on her own however she did occasionally wobble to 1 side or the other but she states because her joints hurt so much when she is putting weight on them. MUSCULOSKELETAL: Normal extremities with adequate strength and full range of motion. No lower extremity swelling or edema. No calf tenderness. LYMPHATICS: No significant lymphadenopathy is noted PSYCHIATRIC: Normal psychiatric evaluation. Course Vital Signs 04/19/24 04/19/24 17:31 18:48 Temperature 98.3 F Pulse Rate 77 79 Respiratory 18 20 Rate Blood Pressure 136/93 147/100 O2 Sat by Pulse 97 96 Oximetry Medical Decision Making - Medical Decision Making Follow-up was pt. sent in by a medical professional or institution (, [facility], FLOORWORKER, urgent care, hospital, or correction...) When possible be specific @ -Sent to us by [facility] emergency department Did you speak to anyone other than the patient for history (EMS, parent, family, police, friend...)? What history was obtained from this source @ -ER doctor from transferring hospital called the ER before the patient arrived to give us the history on this patient Did you review nursing and triage notes (agree or disagree)? Why? @ -I reviewed and agree with nursing and triage notes Were old charts reviewed (outside hosp., previous admission, EMS record, old EKG, old radiological studies, urgent care reports/EKG's, correction records)? Report findings @ -Lab work and CAT scan reports from the transferring hospital Differential Diagnosis? @ -Differential Altered Mental Status: Hypoglycemia, DKA, hypercapnia, ETOH, overdose, CO poisoning, trauma, myxedema coma, HTN encephalopathy, infection, encephalitis, psychosis, intercranial hemorrhage, hepatic encephalopathy, meningitis, CVA, this is not meant to be an all-inclusive list EKG interpreted by me (3pts min.). @ -As above X-rays interpreted by me (1pt min.). @ -None done CT interpreted by me (1pt min.). @ -None done U/S interpreted by me (1pt. min.). @ -None done What testing was considered but not performed or refused? (CT, X-rays, U/S, labs)? Why? @ -None What meds were considered but not given or refused? Why? @ -None Did you discuss the management of the patient with other prfessionals (professionals i.e. , PA, FLOORWORKER, lab, RT, psych nurse, oncology social worker, hotel reservation agent, teacher, business enterprise officer, comp field case manager)? Give summary @ -Spoke with sound physicians and they agreed to admit the patient admit the patient wrote admitting orders Was smoking cessation discussed for >3mins.? @ -No Was critical care preformed (if so, how long)? @ -No Were there social determinants of health that impacted care today? How? (Homelessness, low income, unemployed, alcoholism, drug addiction, transportation, low edu. Level, literacy, decrease access to med. care, nursing home, rehab)? @ -No Was there de-escalation of care discussed even if they declined (Discuss DNR or withdrawal of care, Hospice)? DNR status @ -No What co-morbidities impacted this encounter? (DM, HTN, Smoking, COPD, CAD, Cancer, CVA, ARF, Chemo, Hep., AIDS, mental health diagnosis, sleep apnea, morbid obesity)? @ -None Was patient admitted / discharged?Hospital course, mention meds given and route, prescriptions, significant lab abnormalities, going to OR and other pertinent info. @ -Patient was extremely tired and walking was difficult because she said all of her joints and her legs were painful. The patient was alert and oriented x 3 and was able to ambulate on her own Undiagnosed new problem with uncertain prognosis? @ -No Drug Therapy requiring intensive monitoring for toxicity (Heparin, Nitro, Insulin, Cardizem)? @ -No Were any procedures done? @ -No Diagnosis/symptom? @ -Altered mental status Acute, or Chronic, or Acute on Chronic? @ -Acute Uncomplicated (without systemic symptoms) or Complicated (systemic symptoms)? @ -Complicated Side effects of treatment? @ -No Exacerbation, Progression, or Severe Exacerbation? @ -No Poses a threat to life or bodily function? How? (Chest pain, [place], [place], pneumonia, PE, COPD, DKA, ARF, appy, cholecystitis, CVA, Diverticulitis, Homicidal, Suicidal, threat to staff... and all critical care pts) @ -No Diagnosis/symptom? @ -Joint pain Acute, or Chronic, or Acute on Chronic? @ -Acute Uncomplicated (without systemic symptoms) or Complicated (systemic symptoms)? @ -Default Side effects of treatment? @ -None Exacerbation, Progression, or Severe Exacerbation] @ -No Poses a threat to life or bodily function? @ -No - Lab Data Lab Results 04/19/24 Range/Units 18:08 Creatine Kinase 125 (30-135) U/L C-Reactive Protein 1.4 H (<1.0) mg/dL Disposition Clinical Impression: Arthralgia Disposition: ADMITTED IP TO THIS HOSP Referrals: None,Stated [Primary Care Provider] - 1-2 days Time of Disposition: 20:24
[2024-04-19] MEDS: KETOROLAC 15 MG/ML 1 ML VIAL IVP STA (19:41)
--- NOTE | 2024-04-20 04:22 | P.HPIM ---
History of Present Illness H&P Date: 04/19/24 Chief Complaint: left side weakness Patient is a 33-year-old female with a past medical history of chronic back pain, morbid obesity, depression and anxiety was transferred from [facility] where she initially presented with complaints of altered mental status and left-sided weakness. Patient states that she has not been feeling like herself from the last 2 days. She has intermittent ataxia with numbness and tingling in the left upper and lower extremities. No similar symptoms in the past. Her coworkers noticed that she seemed not herself since yesterday and was encouraged to seek medical attention. Patient states that she cannot recall all of her events with intermittent altered mental status from the past 2 days. However denies loss of consciousness. She also denies any head injury, facial asymmetry, slurred speech, vision loss, nausea, vomiting, fever or chills, chest pain, shortness of breath, diarrhea or constipation, urinary issues. She is also complaining of acute on chronic lower back pain for which she went to a different ED a week ago and was prescribed Vidor. Currently following with physical therapy twice a week. She continues to take prescribed medications for her depression and anxiety including Vyvanse. Reports taking all her medications as prescribed and denied illicit substance use. At time of interview, patient notes that her symptoms are improved and she is almost back to her baseline. Workup done at [facility] included CT head without contrast which showed no acute infarct or hemorrhage or mass lesion. Chest x-ray was unremarkable with no acute abnormalities. EKG revealed normal sinus rhythem at 92 bpm with poor R wave progression with T wave flattening in Leads III and V3 along with prolonoged QTc of 469 ms with no other obvious ST-T wave changes noted as reviewed by me. The patient underwent an extensive laboratory evaluation at [facility] which was all reviewed including TSH 1.40, respiratory viral panel including RSV, influenza a and B, and COVID-19 negative, magnesium 1.6, sodium 142, potassium 3.6, chloride 109, CO2 23, ALP 62, ALT 28, AST 21, BUN 10, creatinine 0.8, calcium 8.7, total bilirubin 0.4, troponin rapid test less than 0.05, UA showing small bilirubin with no other abnormalities, with urine toxicology positive for opiates and amphetamines. WBC count was 6.7, hemoglobin 12.4, hematocrit 36.6, and platelet count 215. Vitals: Blood pressure 131/93, pulse 105, respiration rate 20, Tmax 98.3, SaO2 96% on room air ED documentation reviewed and case discussed with ED provider. Review of systems: Pertinent positives and negatives as discussed in HPI, a complete review of systems was performed and all other systems are negative. Patient has returned to her baseline symptoms. Stroke code was not activated. Social history: Tobacco: 2 packs/day for 10 years Alcohol: Denies alcohol usage Recreational drugs: Denies illicit drug usage Travel: No recent travel Occupation: galley worker Family History: Mother from complications of lung cancer in 2017. Physical examination: Vital signs reviewed General: non toxic, no distress, appears older stated age, morbidly obese, lying lying flat in her bed Derm: no unusual rashes/lesions, warm Head: atraumatic, normocephalic, symmetric Eyes: EOMI, no lid lag, anicteric sclera, pupils equal round reactive to light ENT: Nose and ears atraumatic Neck: No cervical lymphadenopathy, trachea midline, supple Mouth: no lip lesion, mucus membranes moist Cardiovascular: S1S2 reg, no murmur, positive dorsalis pedis pulse bilateral, no edema Lungs: CTA bilateral, no rhonchi, no rales, no accessory muscle use Abdominal: soft, nontender to palpation, no guarding Ext: muscle strength 5 out of 5 in all 4 extremities grossly, no gross muscle atrophy, no contractures, Neuro: CN II-XI grossly intact, no gross focal neuro deficits Psych: Alert, oriented, appropriate affect Assessment/Plan: 33 y/o female with a PMH of chronic back pain, morbid obesity, depression, and anxiety who presents for weakness and ataxia. Admitted for concerns of CVA. 1. Ataxia, slurred speech, L sided paresthesias and weakness, r/o CVA MRI Brain to r/o ischemic stroke Obtain Echocardiogram to r/o valvular and other structural abnormalities Ordered carotid ultrasound to r/o carotid stenosis Continue with cardiac monitoring to r/o arrythmias such as A fib. Start on statin therapy with Lipitor 80mg po qd Start on antiplatelet therapy with Aspirin 325 mg po qd Bedside swallow evaluation for oral medications Allow permissive HTN with treatment of BP if greater than 220 SBP or 120 DBP Consult speech therapy for swallowing assessment Consult Physical therapy Neurology consult Order fall precautions in light of patient's ataxia Order Neurochecks q4h 2. Acute on chronic back pain with sciatica No obvious alarming features such as fever, urinary/bowel incontinence or retention, significant neurological deficits Consult Physical therapy Pain control with Vidor 7.5mg po q6h prn (Patient was taking Vidor 5mg at home) 3. Depression and anxiety Continue with home medications : Symbicort 80-4.5 mcg inhaler, Wellbutrin SR 150 mg tablet p.o. twice daily, Bentyl 20 mg p.o. 4 times daily as needed, duloxeti ne 60 mg p.o. twice daily, gabapentin 400 mg p.o. 3 times daily, ibuprofen 800 mg p.o. 3 times daily as needed, Vyvanse 30 mg p.o. every morning, loratadine 10 mg p.o. daily DVT prophylaxis: lovenox 40mg subq qd The patient is admitted with an anticipated greater than 2 midnight stay for evaluation of stroke like symptoms CODE STATUS: Full code Discussed with: Patient Anticipated discharge place: Home Past Medical History Past Medical History: Asthma Additional Past Medical History / Comment(s): ovarian cyst, morbid obesity, gestational diabetes, pre-eclampsia, chronic back pain History of Any Multi-Drug Resistant Organisms: MRSA Date of last positivie culture/infection: 2008 MDRO Source:: Bilateral legs Past Surgical History: Adenoidectomy, Cholecystectomy, Tonsillectomy Past Anesthesia/Blood Transfusion Reactions: No Reported Reaction Past Psychological History: No Psychological Hx Reported Additional Psychological History / Comment(s): RN visualized Cutting scars on wrist Smoking Status: Current every day smoker Past Alcohol Use History: None Reported Past Drug Use History: Methamphetamine Additional Drug Use History / Comment(s): pt reported hx of drug use. 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 - Past Family History Mother Family Medical History: No Reported History Medications and Allergies Home Medications Medication Instructions Recorded Confirmed Type Albuterol Sulfate [Ventolin HFA] 2 puff INHALATION RT-QID PRN 04/19/24 04/19/24 History Budesonide/Formoterol Fumarate 2 puff INHALATION RT-BID 04/19/24 04/19/24 Histo ry [Symbicort 80-4.5 Mcg Inhaler] Cholecalciferol (Vitamin D3) 50 mcg PO DAILY 04/19/24 04/19/24 History [Vitamin D3 (50 Mcg = 2000 Iu) Chew Tab] DULoxetine HCL [Cymbalta] 60 mg PO BID 04/19/24 04/19/24 History Dicyclomine [Bentyl] 20 mg PO QID PRN 04/19/24 04/19/24 History EPINEPHrine (Auto Inject) [Epipen] 0.3 mg IM ONCE PRN 04/19/24 04/19/24 History Gabapentin [Neurontin] 400 mg PO TID 04/19/24 04/19/24 History HYDROcodone/APAP 5-325MG [Vidor 1 tab PO Q6H PRN 04/19/24 04/19/24 History 5-325] Ibuprofen [Motrin] 800 mg PO TID PRN 04/19/24 04/19/24 History Lisdexamfetamine Dimesylate 30 mg PO QAM 04/19/24 04/19/24 History [Vyvanse] Loratadine [Claritin] 10 mg PO DAILY PRN 04/19/24 04/19/24 History Ondansetron Odt [Zofran Odt] 8 mg PO Q12H PRN 04/19/24 04/19/24 History buPROPion HCL [Wellbutrin SR] 150 mg PO BID 04/19/24 04/19/24 History methocarbamoL [Robaxin-750] 750 mg PO TID PRN 04/19/24 04/19/24 History traZODone HCL [Desyrel] 50 mg PO DIRECTED 04/19/24 04/19/24 History Allergies Allergy/AdvReac Type Severity Reaction Status Date / Time amoxicillin Allergy Rash/Hives Verified 04/19/24 17:50 azithromycin Allergy Unknown Verified 04/19/24 17:50 bee venom protein (honey bee) Allergy Anaphylaxis Verified 04/19/24 18:08 clindamycin Allergy Anaphylaxis Verified 04/19/24 17:50 coconut Allergy Unknown Verified 04/19/24 17:50 codeine Allergy Itching/hiv Verified 04/19/24 17:50 es Penicillins Allergy Rash/Hives Verified 04/19/24 17:50 Physical Exam Vitals: Vital Signs Temp Pulse Pulse Resp BP BP Pulse Ox 04/19/24 22:31 98.6 F 80 17 121/82 96 04/19/24 20:00 131/93 04/19/24 19:00 142/78 04/19/24 18:48 79 20 147/100 96 04/19/24 17:31 98.3 F 77 18 136/93 97 Intake and Output 04/19/24 04/19/24 04/19/24 06:59 14:59 22:59 Other: Weight 151.046 kg Results Labs: Abnormal Lab Results - Last 24 Hours (Table) 04/19/24 Range/Units 18:08 C-Reactive Protein 1.4 H (<1.0) mg/dL Thrombosis Risk Factor Assmnt - Choose All That Apply Any of the Below Risk Factors Present?: Yes Each Factor Represents 1 point: Obesity (BMI >25) Other Risk Factors: No Thrombosis Risk Factor Assessment Total Risk Factor Score: 1 Thrombosis Risk Factor Assessment Level: Low Risk
--- NOTE | 2024-04-20 07:59 | US ---
EXAMINATION TYPE: US carotid duplex BILAT DATE OF EXAM: 04/20/2024 COMPARISON: NONE CLINICAL INDICATION: Female, 33 years old with history of r/o carotid stenosis; ataxia, left sided pa resthesias, AMS, and slurred speech per ER EMR - patient not able to wake fully and answer history qu estions TECHNIQUE: Carotid duplex ultrasound examination. Indirect Doppler criteria was utilized. FINDINGS: EXAM MEASUREMENTS: RIGHT: Peak Systolic Velocity (PSV) cm/sec ----- Right CCA: 113 ----- Right ICA: 100 ----- Right ECA: 86 ICA/CCA ratio: 0.9 RIGHT: End Diastole cm/sec ----- Right CCA: 32 ----- Right ICA: 26 ----- Right ECA: 24 LEFT: Peak Systolic Velocity (PSV) cm/sec ----- Left CCA: 116 ----- Left ICA: 109 ----- Left ECA: 138 ICA/CCA ratio: 0.9 LEFT: End Diastole cm/sec ----- Left CCA: 28 ----- Left ICA: 41 ----- Left ECA: 29 VERTEBRALS (direction of flow): Right Vertebral: Antegrade Left Vertebral: Antegrade Rhythm: No intimal thickening, plaque, or elevated velocities seen. IMPRESSION: No hemodynamically significant internal carotid stenosis on either side. Criteria for Assigning % of Stenosis / Diameter reduction (Estimation based on the indirect measurements of the internal carotid artery velocities (ICA PSV). 1. Normal (no stenosis)=ICA PSV < 125 cm/s: ratio < 2.0: ICA EDV<40 cm/s. 2. Less than 50% stenosis=ICA PSV < 125 cm/s: ratio < 2.0: ICA EDV<40 cm/s. 3. 50 to 69% stenosis=ICA PSV of 125 to 230 cm/s: ration 2.0 ? 4.0: ICA EDV 40-100 cm/s. 4. Greater than 70% stenosis to near occlusion= ICA PSV > 230 cm/s: ratio > 4.0: ICA EDV > 100 cm/s. 5. Near occlusion= ICA PSV velocities may be low or undetectable: variable ratio and ICA EDV. 6. Total occlusion=unable to detect flow.
--- NOTE | 2024-04-20 08:56 | P.EN ---
CLYDE KIM called overhead at 0 755. Initial rhythm was PEA. He was given 1 of epi and atropine prior to my arrival. I arrived at 0800. Patient had already achieved ROSC at 0758. Was in sinus tachycardia. Received 2 A of bicarb, 2 g of magnesium, 1 g of calcium. He had few runs of NSVT. Loaded with 300 mg of amiodarone and started on amiodarone drip. Blood pressure stabilized. Chest x- ray reviewed at bedside, shows acute pulmonary edema. Patient already on Lasix. Patient was intubated prior to code. Family was updated. Plan was signed out to the oil dipper who is present at bedside. A total of 30 minutes spent at bedside.
[2024-04-20] MEDS ORDERED: methocarbamoL 750 MG TAB PO PRN (09:00)
[2024-04-20] MEDS ORDERED: LORATADINE 10 MG TAB PO PRN (09:00)
[2024-04-20] MEDS ORDERED: DICYCLOMINE 20 MG TAB PO PRN (09:00)
[2024-04-20] MEDS: SYMBICORT 80-4.5 MCG INHALER INHALATION SCH (09:09)
[2024-04-20] MEDS: DULoxetine HCL 60 MG CAPSULE.DR PO SCH (10:08)
[2024-04-20] MEDS: ATORVASTATIN 80 MG TAB PO SCH (10:08)
[2024-04-20] MEDS: IBUPROFEN 800 MG TAB PO PRN (10:08)
[2024-04-20] MEDS: ENOXAPARIN 40 MG/0.4 ML SYRINGE SQ SCH (10:08)
[2024-04-20] MEDS: ASPIRIN 325 MG TAB PO SCH (10:08)
[2024-04-20] MEDS: buPROPion SR 150 MG TABLET.ER PO SCH (10:08)
[2024-04-20] MEDS: GABAPENTIN 400 MG CAP PO SCH (10:10)
[2024-04-20] MEDS: NON FORMULARY DRUG (Lisdexamfetamine Dimesylate [Vyvanse] 30 MG Capsule) PO SCH (10:10)
--- NOTE | 2024-04-20 12:03 | CA ---
Transthoracic Echo Report Name: Tia Vasquez Age: 33 Gender: F : 1990 Exam Date: 04/20/2024 11:15 Exam Location: [facility] Ht (in): 62 Wt (lb): 333 Ordering Physician: Brian Caro MD Attending/Referring Phys: Bolter Helper Ana Salinas RDCS Procedure CPT: Indications: r/o valvular and other structural abnormalities Cardiac Hx: Technical Quality: Fair Contrast 1: Total Dose (mL): Contrast 2: Total Dose (mL): MEASUREMENTS (Male / Female) Normal Values 2D ECHO LV Diastolic Diameter PLAX 5.0 cm 4.2 - 5.9 / 3.9 - 5.3 cm LV Systolic Diameter PLAX 4.0 cm IVS Diastolic Thickness 1.1 cm 0.6 - 1.0 / 0.6 - 0.9 cm LVPW Diastolic Thickness 1.1 cm 0.6 - 1.0 / 0.6 - 0.9 cm LV Relative Wall Thickness 0.4 RV Internal Dim ED PLAX 1.6 cm LA Systolic Diameter LX 4.5 cm 3.0 - 4.0 / 2.7 - 3.8 cm LV Diastolic Volume MOD BP 76.6 cm??? 67 - 155 / 56 - 104 cm??? LV Systolic Volume MOD BP 35.7 cm??? 22 - 58 / 19 - 49 cm??? LV Ejection Fraction MOD BP 53.4 % >= 55 % LV Cardiac Index MOD BP 1176.1 cm???/min???m??? LV Diastolic Volume MOD 4C 79.3 cm??? LV Systolic Volume MOD 4C 36.8 cm??? LV Ejection Fraction MOD 4C 53.6 % LV Cardiac Index MOD 4C 1222.5 cm???/min???m??? LV Diastolic Length 4C 7.0 cm LV Systolic Length 4C 6.6 cm LV Diastolic Volume MOD 2C 71.3 cm??? LV Systolic Volume MOD 2C 34.9 cm??? LV Ejection Fraction MOD 2C 51.0 % LV Cardiac Index MOD 2C 1045.9 cm???/min???m??? LV Diastolic Length 2C 7.3 cm LV Systolic Length 2C 6.6 cm LA Volume 55.9 cm??? 18 - 58 / 22 - 52 cm??? LA Volume Index 20.9 cm???/m??? 16 - 28 cm???/m??? M-MODE Aortic Root Diameter MM 2.6 cm LA Systolic Diameter MM 3.9 cm LA Ao Ratio MM 1.5 AV Cusp Separation MM 1.5 cm DOPPLER MV Area PHT 2.8 cm??? Mitral E Point Velocity 93.2 cm/s Mitral A Point Velocity 72.4 cm/s Mitral E to A Ratio 1.3 MV Deceleration Time 269.1 ms FINDINGS Left Ventricle Left ventricular ejection fraction is estimated at 50-55 %.Mildly increased left ventricular wall thickness. No obvious regional wall motion abnormalities. Left ventricular cavity size normal. Right Ventricle Normal right ventricular size and function. Unable to estimate the right ventricular systolic pressure. Right Atrium Normal right atrial size. Left Atrium Moderately increased left atrial diameter. Mildly increased left atrial volume. Interatrial septal aneurysm. Mitral Valve Structurally normal mitral valve. Mild mitral regurgitation. No mitral stenosis. Aortic Valve Trileaflet aortic valve. No aortic valve stenosis or regurgitation. Tricuspid Valve Structurally normal tricuspid valve. Trace tricuspid regurgitation. Pulmonic Valve Structurally normal pulmonic valve. Pericardium No pericardial or pleural effusion. Aorta Normal size aortic root and proximal ascending aorta. CONCLUSIONS 1. Left ventricle systolic function borderline normal 2. Mild mitral regurgitation Previewed by: Dr. Steve Lomax MD (Electronically Signed) Final Date: 20 April 2024 12:02
--- NOTE | 2024-04-20 15:37 | P.CNNES ---
History of Present Illness Consult date: 04/20/24 Requesting physician: Brian Caro Reason for Consult: r/o cva History of Present Illness: This is a 33-year-old woman with history of lower back pain transferred from outside hospital in [place] for difficulty ambulating found to 1 side with altered mental status and ataxia. Patient was not compliant providing the history and all she told me is that she is having eye issues she had an infection in the eyes but did not go through about it. She denies any headache, denies any focal weakness numbness. Denies any difficulty getting her words out or swallowing. She stated that she has been having ongoing left lower back pain that is rating down and she is following up with a primary care who recommended physical therapy and if that fails then she will proceed with MRI. She feels her eyes are swollen. She denies any vomiting. I spoke with the primary team and there is a mention that she had slurring of the speech but she denied it to him and me. She has underlying history of depression as well as anxiety. Denies any fever recently any rash any sick contacts. She notified the primary team overnight that she had left sided weakness but to me she denies any left- sided weakness and she stated that she has left back pain that is ongoing shooting down her leg and she is being managed as an outpatient. She had CT of the head at outside hospital which was negative for any acute infarct or hemorrhage. White blood cell count was 6.7 thousand, platelets 215,000. AST ALT is within normal limits. BUN/creatinine is within normal limits. Some of the workup during this hospital visit consisted of: Patient is afebrile ESR 14 TSH: 0.674 CK level is 125 Carotid Duplex is no hemodynamic significant internal carotid artery on either side 2D echo:. Function borderline normal. Mild mitral regurgitation. Review of Systems Limited but positive and negative as per HPI. Past Medical History Past Medical History: Asthma Additional Past Medical History / Comment(s): ovarian cyst, morbid obesity, gestational diabetes, pre-eclampsia, chronic back pain History of Any Multi-Drug Resistant Organisms: MRSA Date of last positivie culture/infection: 2008 MDRO Source:: Bilateral legs Past Surgical History: Adenoidectomy, Cholecystectomy, Tonsillectomy Past Anesthesia/Blood Transfusion Reactions: No Reported Reaction Past Psychological History: No Psychological Hx Reported Additional Psychological History / Comment(s): RN visualized Cutting scars on wrist Smoking Status: Current every day smoker Past Alcohol Use History: None Reported Past Drug Use History: Methamphetamine Additional Drug Use History / Comment(s): pt reported hx of drug use. 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 - Past Family History Mother Family Medical History: No Reported History Medications and Allergies Home Medications Medication Instructions Recorded Confirmed Type Albuterol Sulfate [Ventolin HFA] 2 puff INHALATION RT-QID PRN 04/19/24 04/19/24 History Budesonide/Formoterol Fumarate 2 puff INHALATION RT-BID 04/19/24 04/19/24 History [Symbicort 80-4.5 Mcg Inhaler] Cholecalciferol (Vitamin D3) 50 mcg PO DAILY 04/19/24 04/19/24 History [Vitamin D3 (50 Mcg = 2000 Iu) Chew Tab] DULoxetine HCL [Cymbalta] 60 mg PO BID 04/19/24 04/19/24 History Dicyclomine [Bentyl] 20 mg PO QID PRN 04/19/24 04/19/24 History EPINEPHrine (Auto Inject) [Epipen] 0.3 mg IM ONCE PRN 04/19/24 04/19/24 History Gabapentin [Neurontin] 400 mg PO TID 04/19/24 04/19/24 History HYDROcodone/APAP 5-325MG [Blaine 1 tab PO Q6H PRN 04/19/24 04/19/24 History 5-325] Ibuprofen [Motrin] 800 mg PO TID PRN 04/19/24 04/19/24 History Lisdexamfetamine Dimesylate 30 mg PO QAM 04/19/24 04/19/24 History [Vyvanse] Loratadine [Claritin] 10 mg PO DAILY PRN 04/19/24 04/19/24 History Ondansetron Odt [Zofran Odt] 8 mg PO Q12H PRN 04/19/24 04/19/24 History buPROPion HCL [Wellbutrin SR] 150 mg PO BID 04/19/24 04/19/24 History methocarbamoL [Robaxin-750] 750 mg PO TID PRN 04/19/24 04/19/24 History traZODone HCL [Desyrel] 50 mg PO HS 04/19/24 04/20/24 History Allergies Allergy/AdvReac Type Severity Reaction Status Date / Time amoxicillin Allergy Rash/Hives Verified 04/19/24 17:50 azithromycin Allergy Unknown Verified 04/19/24 17:50 bee venom protein (honey bee) Allergy Anaphylaxis Verified 04/19/24 18:08 clindamycin Allergy Anaphylaxis Verified 04/19/24 17:50 coconut Allergy Unknown Verified 04/19/24 17:50 codeine Allergy Itching/hiv Verified 04/19/24 17:50 es Penicillins Allergy Rash/Hives Verified 04/19/24 17:50 Physical Examination - Vital Signs Vital Signs: Vital Signs Temp Pulse Pulse Resp BP BP BP 04/20/24 14:25 98.8 F 66 18 128/71 04/20/24 08:15 98.6 F 82 17 133/86 04/20/24 02:00 98.6 F 87 15 118/63 04/19/24 22:31 98.6 F 80 17 121/82 04/19/24 20:00 131/93 04/19/24 19:00 142/78 04/19/24 18:48 79 20 147/100 04/19/24 17:31 98.3 F 77 18 136/93 Pulse Ox 04/20/24 14:25 96 04/20/24 08:15 96 04/20/24 02:00 97 04/19/24 22:31 96 04/19/24 20:00 04/19/24 19:00 04/19/24 18:48 96 04/19/24 17:31 97 Intake and Output 04/20/24 04/20/24 04/20/24 06:59 14:59 22:59 Intake Total 118 Balance 118 Intake: Oral 118 Other: Voiding Method Bedside Commode # Voids 1 2 # Bowel Movements 1 General: This is a morbid obese woman who is lying in bed and is not in acute distress. HENT: Supple neck. Neuro: Somewhat limited because of her cooperation. The patient is sleeping but is awakeable to voice. Is oriented to self, place and time. Is following simple commands. No aphasia. Pupils are round, equal and reactive to light bilaterally. Visual lima are full to confrontation throughout. EOM: Had hard time keeping her eyes open but no nystagmus noted from limitation. Normal facial sensation to touch. No facial weakness. No dysarthria. Tongue is midline and moves side to side without difficulty. Motor: Strength is uppers are 5/5. Left lower is limited because of pain. Right lower is 5/5. Sensation is normal to touch throughout. Cerebellar: Normal finger to nose bilaterally. Reflex: Hard to assess because of obesity. Plantars: Mute bilaterally. Results - Laboratory Findings Abnormal Lab Findings: Abnormal Labs 04/19/24 18:08 C-Reactive Protein 1.4 H Assessment and Plan Assessment: This is a 33-year-old woman was transferred from [facility] for furt her neurological workup for concern of a stroke for her left-sided weakness ataxia altered mental status. Patient notified me that she is only having visual disturbance since yesterday but stated she has ongoing lower back pain that shoots down the left leg and is being addressed by her primary and is getting therapy. Visual disturbance and reported left-sided weakness with ataxia but I did not appreciate any left-sided weakness other than the left lower extremity and that is due to her ongoing lower back pain. Unsure exact etiology at this point. Questionable stroke which I feel unlikely. Also rule out any demyelinating disease. Last is unsure if patient is having functional patient had CT of the head at outside hospital which is unremarkable. Carotid duplex is normal. Chronic left back pain and it seems patient has left lumbar radiculopathy tobacco use Depression Anxiety Mobility obesity Plan: Primary team ordered MRI of the brain and I changed to MRI with and without any stroke, enhancement or demyelination Pending vitamin B12, hemoglobin A1c, lipid panel Patient was started on aspirin 81 mg daily as well as Lipitor 40 mg daily If patient continues to have further confusion I will pursue with a routine EEG Patient is getting physical therapy as an outpatient and is being managed for her lower left back pain by her primary care physician and if that fails she was told that she will pursue MRI of the lumbar. And then I would recommend also following up with a neurosurgeon or orthopedic surgeon as an outpatient and considering EMG with nerve conduction study as an outpatient Currently PT and OT as well as [employer]USBAND[employer] are consulted Continue neurochecks Cardiac monitoring Will defer the rest of the medical management to primary and other specialist For DVT prophylaxis the patient is on Lovenox Plan is discussed with the patient and the primary team Thank for the consultation Time with Patient: Greater than 30
--- NOTE | 2024-04-20 16:15 | P.PN ---
Subjective Progress Note Date: 04/20/24 Subjective: Patient seen and examined at bedside. No significant overnight events after being admitted. Patient reported being tired after previous eventful 24 hours. Pertinent positives and negatives discussed above, a complete review of systems was preformed and all the other sytems were negative. Vitals Signs Reveiwed. General: Nontoxic, no distress, appears at stated age, morbidly obese, very drowsy Derm: warm, dry Head: Atruamatic, normocephalic, symmetric Eyes: EOMI, no lid lag, anicteric sclera Cardiovascular: Regular rate and rhythm, no murmurs nor gallops auscultated Lungs: Clear bilaterally, no Rales or wheezing auscultated Abdominal: Soft nontender, no distention or guarding noted on inspection Ext: Ambulates all extremities Neuro: Neurologically intact without signs of deficit Psych: Drowsy, oriented, appropriate affect Data Reveiwed Today: Patient Labs: ESR 14, CRP 1.4, CK1 25, TSH 0.674 Imaging:Echo showed only mild mitral regurgitation, with an EF of 50 to 55%. Carotid ultrasound: No hemodynamically significant internal carotid stenosis on either side. Assesment and Plan: 33 y/o female with a PMH of chronic back pain, morbid obesity, depression, and anxiety who presents for weakness and ataxia is currently being worked up to rule out CVA. Ataxia, L sided paresthesias and weakness, r/o CVA Discussed management with neurology, patient will undergo MRI with and without to rule out any stroke, enhancement, or demyelination Started on aspirin 81 mg daily as well as Lipitor 40 mg daily If patient continues to have further confusion, will proceed with routine EEG Echo showed only mild mitral regurgitation, with an EF of 50 to 55%. Carotid ultrasound: No hemodynamically significant internal carotid stenosis on either side. Continue with cardiac monitoring to r/o arrythmias such as A fib. Allow permissive HTN with treatment of BP if greater than 220 SBP or 120 DBP PT and speech therapy consulted Neurochecks q4h Acute on chronic back pain with sciatica No obvious alarming features such as fever, urinary/bowel incontinence or retention, significant neurological deficits Ibuprofen 800 mg p.o. 3 times daily as needed, Toradol 15 mg IVP once, Robaxin 750 mg p.o. 3 times daily as needed Depression and anxiety Continue with home medications : Symbicort 80-4.5 mcg inhaler, Wellbutrin SR 150 mg tablet p.o. twice daily, Bentyl 20 mg p.o. 4 times daily as needed, duloxetine 60 mg p.o. twice daily, gabapentin 400 mg p.o. 3 times daily, ibuprofen 800 mg p.o. 3 times daily as needed, Vyvanse 30 mg p.o. every morning, loratadine 10 mg p.o. daily Morbid obesity -Outpatient structured weight loss program F none E none N regular diet A being seen by PT. She sees PT outpatient as well for assistance with ambulation. DVT ppx: Enoxaparin 40 mg SQ daily Code Status: Full Code Anticipated discharge place: To home Anticipated discharge time: 04/22/2024 I have seen and evaluated the patient today. Discussed with the resident and agree with the residents finding and plan as documented in the resident's note. Changes highlighted in blue font. Objective - Vital Signs Vital signs: Vital Signs Temp 98.6 F 04/20/24 02:00 Pulse 87 04/20/24 02:00 Resp 15 04/20/24 02:00 BP 118/63 04/20/24 02:00 Pulse Ox 97 04/20/24 02:00 FiO2 Intake & Output 04/19/24 04/20/24 04/20/24 18:59 06:59 18:59 Weight 151.046 kg 151.046 kg Other: Voiding Method Bedside Commode # Voids 1 - Labs Labs: Abnormal Lab Results - Last 24 Hours (Table) 04/19/24 Range/Units 18:08 C-Reactive Protein 1.4 H (<1.0) mg/dL
[2024-04-21 07:14] LABS: HCT 37.9 % (34.0-46.0); HGB 11.6 gm/dL (11.4-16.0); MCH 30.1 pg (25.0-35.0); MCHC 30.7 g/dL (31.0-37.0); MCV 98.2 fL (80.0-100.0); Mean Platelet Volume 7.3; Platelet Count 219 k/uL (150-450); RBC 3.86 m/uL (3.80-5.40); RDW 14.2 % (11.5-15.5); WBC 6.2 k/uL (3.8-10.6)
[2024-04-21 07:51] LABS: African American GFR (CKD) >90 (>60 ml/min/1.73 sqM); Anion Gap 4 mmol/L; Blood Urea Nitrogen 12 mg/dL (7-17); Calcium 8.7 mg/dL (8.4-10.2); Carbon Dioxide 25 mmol/L (22-30); Chloride 110 mmol/L (98-107); Glucose 105 mg/dL (74-99); Non-African American GFR(CKD) >90 (>60 ml/min/1.73 sqM); Potassium 3.3 mmol/L (3.5-5.1); Sodium 139 mmol/L (137-145)
[2024-04-21] MEDS: ASPIRIN 81 MG PO SCH (09:09)
[2024-04-21] MEDS: ATORVASTATIN 40 MG TAB PO SCH (09:09)
[2024-04-21 10:08] LABS: Chol/HDL Ratio 2.91 Ratio; LDL Cholesterol,Calculated 55.5 mg/dL (0.0-131.0); VLDL Calculation 14.74 mg/dL (5.00-40.00)
[2024-04-21] MEDS: POTASSIUM CHLORIDE ER 20 MEQ TAB.ER PO STA (11:05)
--- NOTE | 2024-04-21 13:21 | P.PN ---
Subjective Progress Note Date: 04/21/24 Subjective: Patient seen and examined at bedside. No significant overnight events. Pertinent positives and negatives discussed above, a complete review of systems was preformed and all the other sytems were negative. Vitals Signs Reveiwed. General: Nontoxic, no distress, appears at stated age, morbidly obese Derm: warm, dry Head: Atruamatic, normocephalic, symmetric Eyes: EOMI, no lid lag, anicteric sclera Cardiovascular: Regular rate and rhythm, no murmurs nor gallops auscultated Lungs: Clear bilaterally, no Rales or wheezing auscultated Abdominal: Soft nontender, no distention or guarding noted on inspection Ext: Ambulates all extremities Neuro: Neurologically intact without signs of deficit Psych: Drowsy, oriented, appropriate affect Data Reveiwed Today: Patient Labs: Sodium 139, potassium 3.3, chloride 110, glucose 105, WBC 6.2, hemoglobin 11.6, MCV 98.2, ESR 14, CRP 1.4, CK1 25, TSH 0.674, B12 864, A1c 5.6 Imaging: Echo showed only mild mitral regurgitation, with an EF of 50 to 55%. Carotid ultrasound: No hemodynamically significant internal carotid stenosis on either side. Assesment and Plan: 33 y/o female with a PMH of chronic back pain, morbid obesity, depression, and anxiety who presents for weakness and ataxia is currently being worked up to rule out CVA. Ataxia, L sided paresthesias and weakness, r/o CVA Discussed management with neurology, patient will undergo MRI with and without to rule out any stroke, enhancement, or demyelination If MRI comes back with no pathologies, patient can be discharged Continue on aspirin 81 mg daily as well as Lipitor 40 mg daily If patient continues to have further confusion, will proceed with routine EEG Echo showed only mild mitral regurgitation, with an EF of 50 to 55%. Carotid ultrasound: No hemodynamically significant internal carotid stenosis on either side. Continue with cardiac monitoring to r/o arrythmias such as A fib. PT and speech therapy consulted Neurochecks q4h Acute on chronic back pain with sciatica No obvious alarming features such as fever, urinary/bowel incontinence or retention, significant neurological deficits Ibuprofen 800 mg p.o. 3 times daily as needed, Toradol 15 mg IVP once, Robaxin 750 mg p.o. 3 times daily as needed, gabapentin 100 3 times daily -Avoid narcotics Depression and anxiety, ADHD Continue with home medications :Wellbutrin SR 150 mg tablet p.o. twice daily, duloxetine 60 mg p.o. twice daily, Vyvanse 30 mg p.o. every morning, loratadine 10 mg p.o. daily -Trazodone on hold Hypokalemia: Potassium today (04/21) 3.3 Repleted with potassium chloride ER 20 mill equivalents Chronic Asthma F none E repleted potassium N regular diet A being seen by PT, PT follows as an outpatient as well. DVT ppx: Enoxaparin 40 mg SQ daily Code Status: Full code Anticipated discharge place: Home Anticipated discharge time: 04/22/2024 I have seen and evaluated the patient today. Discussed with the resident and agree with the residents finding and plan as documented in the resident's note. Changes highlighted in blue font. Objective - Vital Signs Vital signs: Vital Signs Temp 98.1 F 04/21/24 01:59 Pulse 78 04/21/24 01:59 Resp 16 04/21/24 01:59 BP 127/69 04/21/24 01:59 Pulse Ox 96 04/21/24 01:59 FiO2 Intake & Output 04/20/24 04/21/24 04/21/24 18:59 06:59 18:59 Intake Total 236 Balance 236 Intake: Oral 236 Other: Voiding Method Bedside Commode # Voids 4 2 # Bowel Movements 1 - Labs CBC & Chem 7: 04/21/24 05:29 04/21/24 05:29
[2024-04-21] MEDS ORDERED: ALBUTEROL HFA INHALER INHALATION PRN (13:51)
[2024-04-22 07:58] VITALS: RESP 18
[2024-04-22 08:40] LABS: Basophils # (A) 0.04 X 10*3/uL (0.00-0.10); Basophils % (A) 0.6 %; Eosinophils # (A) 0.25 X 10*3/uL (0.04-0.35); HCT 35.1 % (37.2-46.3); HGB 11.3 g/dL (12.0-15.0); Lymphocytes # (A) 2.11 X 10*3/uL (0.90-5.00); Lymphocytes % (A) 33.5 %; MCHC 32.2 g/dL (32.0-37.0); MCV 96.4 FL (80.0-97.0); Monocytes % (A) 7.9 %; NRBC Per 100 WBC 0 X 10*3/uL (0.00-0.01); Neutrophils # (A) 3.37 X 10*3/uL (1.80-7.70); Neutrophils % (A) 53.7 %; Platelet Count 183 X 10*3/uL (140-440); RBC 3.64 X 10*6/uL (4.10-5.20); RDW 14.5 % (11.5-14.5); WBC 6.29 X 10*3/uL (4.50-10.00)
[2024-04-22 08:57] LABS: BUN/Creat Ratio 16.25 Ratio (12.00-20.00); Calcium 8.4 mg/dL (8.7-10.3); Carbon Dioxide 24.5 mmol/L (21.6-31.8); Chloride 106 mmol/L (96-109); Glucose 91 mg/dL (70-110); Potassium 3.7 mmol/L (3.5-5.5); Sodium 142 mmol/L (135-145)
[2024-04-22] MEDS: ALPRAZolam 1 MG TAB PO ONE (11:53)
--- NOTE | 2024-04-22 13:32 | P.PN ---
Subjective Progress Note Date: 04/22/24 Subjective: Patient seen at bedside. No overnight events. Pending brain MRI. Pertinent positives and negatives discussed above, a complete review of systems was preformed and all the other systems were negative. Vitals Signs Reviewed. General: Nontoxic, no distress, appears at stated age, morbidly obese Derm: warm, dry Head: Atruamatic, normocephalic, symmetric Eyes: EOMI, no lid lag, anicteric sclera Cardiovascular: Regular rate and rhythm, no murmurs nor gallops auscultated Lungs: Clear bilaterally, no Rales or wheezing auscultated Abdominal: Soft nontender, no distention or guarding noted on inspection Ext: Ambulates all extremities Neuro: Neurologically intact without signs of deficit Psych: Drowsy, oriented, appropriate affect Data Reveiwed Today: Patient Labs: WBC 6.29, hemoglobin 11.3, MCV 96.4, BUN 13, creatinine, ESR 14, CRP 1.4, CK1 25, TSH 0.674, B12 864, A1c 5.6, potassium 3.7 Imaging: Echo showed only mild mitral regurgitation, with an EF of 50 to 55%. Carotid ultrasound: No hemodynamically significant internal carotid stenosis on either side. Pending brain MRI Assesment and Plan: 33 y/o female with a PMH of chronic back pain, morbid obesity, depression, and anxiety who presents for weakness and ataxia is currently being worked up to rule out CVA. Ataxia, L sided paresthesias and weakness, r/o CVA Discussed management with neurology, patient will undergo MRI with and without to rule out any stroke, enhancement, or demyelination If MRI comes back with no pathologies, patient can be discharged Continue on aspirin 81 mg daily as well as Lipitor 40 mg daily If patient continues to have further confusion, will proceed with routine EEG Echo showed only mild mitral regurgitation, with an EF of 50 to 55%. Carotid ultrasound: No hemodynamically significant internal carotid stenosis on either side. Continue with cardiac monitoring to r/o arrythmias such as A fib. PT and speech therapy consulted Neurochecks q4h Acute on chronic back pain with sciatica No obvious alarming features such as fever, urinary/bowel incontinence or retention, significant neurological deficits Ibuprofen 800 mg p.o. 3 times daily as needed, Toradol 15 mg IVP once, Robaxin 750 mg p.o. 3 times daily as needed, gabapentin 100 3 times daily -Avoid narcotics Depression and anxiety, ADHD Continue with home medications :Wellbutrin SR 150 mg tablet p.o. twice daily, duloxetine 60 mg p.o. twice daily, Vyvanse 30 mg p.o. every morning, loratadine 10 mg p.o. daily -Trazodone on hold Hypokalemia, resolved Chronic Asthma F none E replete as needed N regular diet A being seen by PT, PT follows as an outpatient as well. DVT ppx: Enoxaparin 40 mg SQ daily Code Status: Full code Anticipated discharge place: Home Anticipated discharge time: 04/22/2024 I have seen and evaluated the patient today. Discussed with the resident and agree with the residents finding and plan as documented in the resident's note. Changes highlighted in blue. Objective - Vital Signs Vital signs: Vital Signs Temp 98.3 F 04/22/24 07:00 Pulse 78 04/22/24 07:00 Resp 18 04/22/24 07:00 BP 110/67 04/22/24 07:00 Pulse Ox 97 04/22/24 07:00 FiO2 Intake & Output 04/21/24 04/22/24 04/22/24 18:59 06:59 18:59 Intake Total 118 Balance 118 Intake: Oral 118 Other: # Voids 1 3 - Labs CBC & Chem 7: 04/22/24 03:44 04/22/24 03:44 Labs: Abnormal Lab Results - Last 24 Hours (Table) 04/21/24 04/22/24 Range/Units 05:29 03:44 RBC 3.64 L (4.10-5.20) X 10*6/uL Hgb 11.3 L (12.0-15.0) g/dL Hct 35.1 L (37.2-46.3) % HDL Cholesterol 36.80 L (40.00-60.00) mg/dL
--- NOTE | 2024-04-22 14:04 | MR ---
EXAMINATION TYPE: MR brain wo/w con DATE OF EXAM: 04/22/2024 1:36 PM CLINICAL INDICATION:Female, 33 years old with history of visual issues. stroke. Dx: Multiple sclero sis; PHH, Visual disturbance, stroke, MS COMPARISON: None TECHNIQUE: Multi planar, multi sequence imaging was performed through the brain including: T1, T2, In version recovery, susceptibility weighted imaging and gradient echo imaging and Diffusion weighted im aging. The patient was then given intravenous contrast and multi planar, T1 fat-saturation images wer e obtained. IV Contrast: 15 cc Gadavist FINDINGS: The wade-white junctions, ventricular system, basal cisterns appear unremarkable. Diffusion-weighted imaging shows no evidence of restricted diffusion to suggest acute/subacute infarct. Intracranial ar terial flow voids are maintained. Midline structures show no abnormality. The susceptibility weighted images do not reveal any evidence for micro-hemorrhage. After administration of gadolinium, no abnor mal enhancement is seen. The bone marrow signal is within normal limits. Paranasal sinuses and mastoid air cells: No significant paranasal sinus disease. Visualized orbits: Orbital contents are intact. IMPRESSION: No evidence for active demyelination. No evidence of intracranial mass, acute/subacute infarct, or ab normal enhancement.
--- NOTE | 2024-04-22 14:19 | P.DS ---
Providers Date of admission: 04/19/24 20:25 Expected date of discharge: 04/22/24 Attending physician: Dennis Almazan MD Consults: 04/20/24 01:51 Consult Physician Urgent Consulting Provider: Miller Bello Consult Reason/Comments: r/o cva Do you want consulting provider notified?: Yes, Notify in am Primary care physician: Stated None Hospital Course: Discharge Diagnosis: Ataxia, strokelike symptoms Acute on chronic back pain with sciatica Depression and anxiety ADHD Polypharmacy Morbid obesity Hospital Course: 33-year-old female with history of chronic back pain, morbid obesity, depression and anxiety was transferred from [facility] where she initially presented with complaints of altered mental status and left-sided weakness. Workup done at [facility] included CT head without contrast which showed no acute infarct or hemorrhage or mass lesion. Chest x-ray was unremarkable with no acute abnormalities. EKG revealed normal sinus rhythem at 92 bpm with poor R wave progression with T wave flattening in Leads III and V3 along with prolonoged QTc of 469 ms with no other obvious ST-T wave changes noted. The patient underwent an extensive laboratory evaluation at [facility] which was all reviewed including TSH 1.40, respiratory viral panel including RSV, influenza a and B, and COVID-19 negative, magnesium 1.6, sodium 142, potassium 3.6, chloride 109, CO2 23, ALP 62, ALT 28, AST 21, BUN 10, creatinine 0.8, calcium 8.7, total bilirubin 0.4, troponin rapid test less than 0.05, UA showing small bilirubin with no other abnormalities, with urine toxicology positive for opiates and amphetamines. WBC count was 6.7, hemoglobin 12.4, hematocrit 36.6, and platelet count 215. Vitals: Blood pressure 131/93, pulse 105, respiration rate 20, Tmax 98.3, SaO2 96% on room air. Neurology was consulted. Patient was slightly hypokalemic, repleted potassium. MRI did not show any demyelinating process or any other acute process. Patient back to baseline. Possibly neurologic symptoms related to polypharmacy. Patient to see her psychiatrist and also continue physical therapy at home. She also needs to be involved in structured weight loss program. Patient seen and examined at bedside. Vital signs reviewed and stable. General: Nontoxic, no distress, appears at stated age morbidly obese Derm: Warm, dry Head: Atraumatic, normocephalic, symmetric Eyes: EOMI, no lid lag, anicteric sclera Mouth: No lip lesion, mucus membranes moist Cardiovascular: S1S2 reg, no murmur Lungs: CTA bilateral, no rhonchi, no rales, no accessory muscle use Abdominal: Soft, nontender to palpation, no guarding, no appreciable organomegaly Ext: No gross muscle atrophy, no edema, no contractures Neuro: CN II-XI grossly intact, no focal neuro deficits Psych: Alert, oriented, appropriate affect A total of 33 minutes of time were spent preparing this complex discharge summary. Patient was discharged on 04/22/2024 at 1417. Patient Condition at Discharge: Stable Plan - Discharge Summary New Discharge Prescriptions: Continue Dicyclomine [Bentyl] 20 mg PO QID PRN PRN Reason: Diarrhea/cramping EPINEPHrine (Auto Inject) [Epipen] 0.3 mg IM ONCE PRN PRN Reason: Anaphylaxis Gabapentin [Neurontin] 400 mg PO TID Ibuprofen [Motrin] 800 mg PO TID PRN PRN Reason: Pain Ondansetron Odt [Zofran ODT] 8 mg PO Q12H PRN PRN Reason: Nausea Albuterol Sulfate [Ventolin HFA] 2 puff INHALATION RT-QID PRN PRN Reason: Shortness Of Breath Budesonide/Formoterol Fumarate [Symbicort 80-4.5 Mcg Inhaler] 2 puff INHALATION RT-BID buPROPion HCL [Wellbutrin SR] 150 mg PO BID Cholecalciferol (Vitamin D3) [Vitamin D3 (50 Mcg = 2000 Iu) Chew Tab] 50 mcg PO DAILY DULoxetine HCL [Cymbalta] 60 mg PO BID HYDROcodone/APAP 5-325MG [[place] 5-325] 1 tab PO Q6H PRN PRN Reason: Pain Lisdexamfetamine Dimesylate [Vyvanse] 30 mg PO QAM Loratadine [Claritin] 10 mg PO DAILY PRN PRN Reason: Allergy Symptoms methocarbamoL [Robaxin-750] 750 mg PO TID PRN PRN Reason: back pain Discontinued traZODone HCL [Desyrel] 50 mg PO HS Discharge Medication List Albuterol Sulfate [Ventolin HFA] 2 puff INHALATION RT-QID PRN 04/19/24 [History] Budesonide/Formoterol Fumarate [Symbicort 80-4.5 Mcg Inhaler] 2 puff INHALATION RT-BID 04/19/24 [History] Cholecalciferol (Vitamin D3) [Vitamin D3 (50 Mcg = 2000 Iu) Chew Tab] 50 mcg PO DAILY 04/19/24 [History] DULoxetine HCL [Cymbalta] 60 mg PO BID 04/19/24 [History] Dicyclomine [Bentyl] 20 mg PO QID PRN 04/19/24 [History] EPINEPHrine (Auto Inject) [Epipen] 0.3 mg IM ONCE PRN 04/19/24 [History] Gabapentin [Neurontin] 400 mg PO TID 04/19/24 [History] HYDROcodone/APAP 5-325MG [[place] 5-325] 1 tab PO Q6H PRN 04/19/24 [History] Ibuprofen [Motrin] 800 mg PO TID PRN 04/19/24 [History] Lisdexamfetamine Dimesylate [Vyvanse] 30 mg PO QAM 04/19/24 [History] Loratadine [Claritin] 10 mg PO DAILY PRN 04/19/24 [History] Ondansetron Odt [Zofran ODT] 8 mg PO Q12H PRN 04/19/24 [History] buPROPion HCL [Wellbutrin SR] 150 mg PO BID 04/19/24 [History] methocarbamoL [Robaxin-750] 750 mg PO TID PRN 04/19/24 [History] Follow up Appointment(s)/Referral(s): Jozef Beltrán MD [REFERRING] - 1 Week Patient Instructions/Handouts: Weakness (DC) Activity/Diet/Wound Care/Special Instructions: Please see your PCP (if you do not have one, please call Dr. Beltrán's office). Also see your psychiatrist. Discharge Disposition: HOME SELF-CARE
--- NOTE | 2024-04-22 15:03 | P.PN ---
Subjective Progress Note Date: 04/22/24 I am following-up with patient and states is doing better. She denies of having ataxia, slurred speech. The primary team stated that she notified she did not presents with the complaints that she was transferred for. Objective - Vital Signs Vital signs: Vital Signs Temp 98.3 F 04/22/24 07:00 Pulse 78 04/22/24 07:00 Resp 18 04/22/24 07:00 BP 110/67 04/22/24 07:00 Pulse Ox 97 04/22/24 07:00 FiO2 Intake & Output 04/21/24 04/22/24 04/22/24 18:59 06:59 18:59 Intake Total 118 472 Balance 118 472 Intake: Oral 118 472 Other: Voiding Method Bedside Commode # Voids 1 3 1 - Exam General: This is a morbid obese woman who is lying in bed and is not in acute distress. HENT: Supple neck. Neuro: Somewhat limited because of her cooperation. The patient is drowsy but is awakeable to voice. Is oriented to self, place and time. Is following simple commands. No aphasia. Pupils are round, equal and reactive to light bilaterally. Visual lima are full to confrontation throughout. EOM: Had hard time keeping her eyes open but no nystagmus noted from limitation. Normal facial sensation to touch. No facial weakness. No dysarthria. Tongue is midline and moves side to side without difficulty. Motor: Strength is 5/5 throughout and feel her back pain is better. Sensation is normal to touch throughout. Cerebellar: Normal finger to nose bilaterally. Reflex: Hard to assess because of obesity. Plantars: Mute bilaterally. Some of the workup during this hospital visit consisted of: Patient is afebrile Lipid panel: TG 73, cholestrol 107, LDL 55 and HDL 36 Vitamin B12: 864 HbA1c: 5.6 ESR 14 TSH: 0.674 CK level is 125 Carotid Duplex is no hemodynamic significant internal carotid artery on either side 2D echo:. Left ventricle systolic Function borderline normal. Mild mitral regurgitation. - Labs CBC & Chem 7: 04/22/24 03:44 04/22/24 03:44 Labs: Abnormal Lab Results - Last 24 Hours (Table) 04/22/24 04/22/24 Range/Units 03:44 03:44 RBC 3.64 L (4.10-5.20) X 10*6/uL Hgb 11.3 L (12.0-15.0) g/dL Hct 35.1 L (37.2-46.3) % Calcium 8.4 L (8.7-10.3) mg/dL Assessment and Plan Assessment: This is a 33-year-old woman was transferred from [facility] for further neurological workup for concern of a stroke for her left-sided weakness ataxia altered mental status. Patient notified me that she is only having visual disturbance since yesterday but stated she has ongoing lower back pain that shoots down the left leg and is being addressed by her primary and is getting therapy. Visual disturbance and reported left-sided weakness with ataxia but I did not appreciate any left-sided weakness other than the left lower extremity and that is due to her ongoing lower back pain. MRI Brain is normal. I feel her symtoms are more functional. Carotid duplex is normal. Drowsy and sleeping most of time: Probable due to polypharmacy (on multiple psychiatric and neuropathic pain med. Is on Wellbutrin, Cymbalta, Gabapentin and Robaxin). Chronic left back pain and it seems patient has left lumbar radiculopathy tobacco use Depression Anxiety Mobility obesity Plan: MRI Brain w/ and w/o is normal. Patient was started on aspirin 81 mg daily as well as Lipitor 40 mg daily Patient is getting physical therapy as an outpatient and is being managed for her lower left back pain by her primary care physician and if that fails she was told that she will pursue MRI of the lumbar. And then I would recommend also following up with a neurosurgeon or orthopedic surgeon as an outpatient and considering EMG with nerve conduction study as an outpatient. Today her back pain is better. I feel patient is on polypharmacy and recommend modifying her medication with psychiatrist as outpatient and neurologist. Currently PT and OT as well as ARCHITECTURE DEPARTMENT CHAIR are consulted Continue neurochecks Cardiac monitoring Will defer the rest of the medical management to primary and other specialist For DVT prophylaxis the patient is on Lovenox Plan is discussed with the patient and the primary team There is no further neurological work-up. Time with Patient: Less than 30
[2024-04-22 15:42] VITALS: BP 173/82; PULSE 65; TEMP 98.2
== END 2024-04-22 15:59 | disposition home or self-care (01) ==
LOC: EC 17:22 → 6NMEDSUR 20:25
PROVIDERS: ADMIT Internal Medicine; ATTEND Internal Medicine
DX: R41.82 Altered mental status, unspecified (principal); R27.0 Ataxia, unspecified; M54.50 Low back pain, unspecified; G89.29 Other chronic pain; F41.8 Other specified anxiety disorders; F90.9 Attention-deficit hyperactivity disorder, unspecified type; E66.01 Morbid (severe) obesity due to excess calories; Z86.32 Personal history of gestational diabetes; Z79.899 Other long term (current) drug therapy; Z79.51 Long term (current) use of inhaled steroids; I10 Essential (primary) hypertension
CPT/HCPCS: 96372 ×3; 96365; 99285; 36415; 94640 ×5; 93306; 92610; 92523; 80061; 80048 ×2; 85652; 84443; 82607; 82550; 85025; 85027; 86140; 83036; 93880; 70553; G0378 ×4; S0106 ×3; J1650 ×3; J1885; A9585